=== PATIENT | male | born 1950 | race Hispanic/Latino ===

== ENCOUNTER 2016-10-07 10:48 | Inpatient (IN) | payer MEDICARE, OTHER ==
[2016-10-07] MEDS ORDERED: Nitroglycerin 2% Ointment Foilpak UD TOP STA (11:14)
[2016-10-07] MEDS ORDERED: Famotidine 20mg/50ml 20 MG/50 ML BAG IVPB STA (11:15)
--- NOTE | 2016-10-07 11:21 | ED PDOC ---
Arrival/HPI - General Chief Complaint: Chest Pain Time Seen by Provider: 10/07/16 11:01 Historian: Patient - History of Present Illness Narrative History of Present Illness (Text): 10/07/16 11:12 Lg Forbes is a 66 year old male, with a history of hypertension on lisinopril, presents to the emergency department complaining of left sided chest discomfort since 6 am today morning. Patient describes the quality of discomfort as a burning sensation the the left side of his chest which radiates to the back and left arm. Patient reports that he has not experienced chest pain of this quality before. En route, patient was given aspirin and nitroglycerin by EMS for minimal symptomatic relief. Patient denies any fever, chills, shortness of breath, nausea, vomiting, urinary symptoms, or any other complaints at this time. Time/Duration: Other (since 6am today ) Symptom Onset: Gradual Symptom Course: Improving Severity Level: Mild Activities at Onset: Light Context: Home Past Medical History - Provider Review Nursing Documentation Reviewed: Yes - Infectious Disease Hx of Infectious Diseases: None - Tetanus Immunization Tetanus Immunization: Unknown - Cardiac Hx Cardiac Disorders: Yes Hx Hypertension: Yes - Pulmonary Hx Respiratory Disorders: Yes Hx Bronchitis: Yes - Neurological Hx Neurological Disorder: No - HEENT Hx HEENT Disorder: No - Renal Hx Renal Disorder: No - Endocrine/Metabolic Hx Endocrine Disorders: No - Hematological/Oncological Hx Blood Disorders: No - Integumentary Hx Dermatological Disorder: No - Musculoskeletal/Rheumatological Hx Musculoskeletal Disorders: No - Gastrointestinal Hx Gastrointestinal Disorders: No - Genitourinary/Gynecological Hx Genitourinary Disorders: No - Psychiatric Hx Psychophysiologic Disorder: No Hx Depression: No Hx Emotional Abuse: No Hx Physical Abuse: No Hx Substance Use: No - Suicidal Assessment Feels Threatened In Home Enviroment: No Family/Social History - Physician Review Nursing Documentation Reviewed: Yes Family/Social History: No Known Family HX Smoking Status: Light Smoker < 10 Cigarettes Daily Hx Alcohol Use: No Hx Substance Use: No Hx Substance Use Treatment: No Allergies/Home Meds Allergies/Adverse Reactions: Allergies Penicillins Allergy (Verified 10/07/16 10:57) RASH Home Medications: Home Meds Medication Instructions Recorded Confirmed Albuterol HFA [Ventolin HFA 90 1 puff IH PRN PRN 11/10/15 10/07/16 mcg/actuation (8 g)] Lisinopril [Lisinopril] 10 mg PO DAILY 11/10/15 10/07/16 Montelukast [Singulair] 10 mg PO DAILY 11/10/15 10/07/16 Advair 250-50 Diskus 1 puff INH BID 10/07/16 10/07/16 Review of Systems - Physician Review All systems were reviewed & negative as marked: Yes - Review of Systems Constitutional: Normal. absent: Fatigue, Fevers Respiratory: Cough. absent: SOB, Sputum Cardiovascular: Chest Pain (Burning sensation ) Gastrointestinal: absent: Abdominal Pain, Diarrhea, Nausea, Vomiting Musculoskeletal: Back Pain (chest pain radiating to left back ), Other (chest pain radiating to left arm ) Neurological: Normal Physical Exam Vital Signs Reviewed: Yes Vital Signs Pulse Resp BP Pulse Ox 10/07/16 11:05 79 16 137/83 100 Temperature: Afebrile Blood Pressure: Normal Pulse: Regular Respiratory Rate: Normal Appearance: Positive for: Well-Appearing, Non-Toxic, Comfortable Pain Distress: None Mental Status: Positive for: Alert and Oriented X 3 - Systems Exam Head: Present: Atraumatic, Normocephalic Pupils: Present: PERRL Conjunctiva: Present: Normal Mouth: Present: Moist Mucous Membranes Respiratory/Chest: Present: Clear to Auscultation, Good Air Exchange. No: Respiratory Distress, Accessory Muscle Use Cardiovascular: Present: Regular Rate and Rhythm, Normal S1, S2. No: Murmurs Abdomen: Present: Normal Bowel Sounds. No: Tenderness, Distention, Peritoneal Signs, Rebound, Guarding Back: Present: Normal Inspection. No: Midline Tenderness, Paraspinal Tenderness Upper Extremity: Present: Normal Inspection. No: Cyanosis, Edema Lower Extremity: Present: Normal Inspection. No: Edema Neurological: Present: GCS=15, CN II-XII Intact, Speech Normal, Motor Func Grossly Intact, Normal Sensory Function Skin: Present: Warm, Dry, Normal Color. No: Rashes Psychiatric: Present: Alert, Oriented x 3, Normal Insight, Normal Concentration Medical Decision Making ED Course and Treatment: 10/07/16 11:22 Impression: A 66 year old male who presents to the emergency department complaining of left sided chest discomfort radiating to back and left arm. Differential Diagnosis included but are not limited to: chest pain r/o ACS vs. GERD Plan: -- EKG -- Labs, cardiac enzymes -- Chest X-ray -- Nitroglycerin -- Pepcid -- Urinalysis -- Reassess and disposition Progress Notes: 10/07/16 11:38 EKG interpreted by me: NSR @ 81 bpm. Normal [place]. Normal interval 10/07/16 12:08 Troponin negative. EKG reviewed. CXR normal. Patient with multiple risk factors for ACS. +smoker. will place on observation for Chest Pain r/o ACS - Lab Interpretations Lab Results: 10/07/16 11:28 10/07/16 11:28 Lab Results 10/07/16 11:28: Sodium 132, Potassium 4.6, Chloride 103, Carbon Dioxide 23, Anion Gap 11, BUN 16, Creatinine 1.2, Est GFR ( Amer) > 60, Est GFR (Non- Af Amer) > 60, Random Glucose 83, Calcium 9.2, Magnesium 2.0, Total Bilirubin 0.4, AST 25, ALT 19, Alkaline Phosphatase 86, Lactate Dehydrogenase 347, Total Creatine Kinase 64, Troponin I < 0.01, Total Protein 6.5, Albumin 3.9, Globulin 2.7, Albumin/Globulin Ratio 1.4 10/07/16 11:28: PT 10.4, INR 0.96, APTT 30.6 10/07/16 11:28: WBC 6.3, RBC 3.48 L, Hgb 11.5 L, Hct 34.8 L, MCV 100.0, MCH 33.0 , MCHC 33.0, RDW 13.5, Plt Count 267, MPV 9.4, Gran % 62.9, Lymph % (Auto) 26.2 , Bowman % (Auto) 7.7 H, Eos % (Auto) 2.9, Baso % (Auto) 0.3, Gran # 3.93, Lymph # 1.6, Bowman # 0.5, Eos # 0.2, Baso # 0.02 I have reviewed the lab results: Yes Interpretation: All labs normal - RAD Interpretation Radiology Orders: 10/07/16 11:14 CHEST PORTABLE [RAD] Stat - Medication Orders Current Medication Orders: Discontinued Medications Famotidine (Pepcid 20mg/50ml Premix) 20 mg in 50 mls @ 100 mls/hr IVPB STAT STA Stop: 10/07/16 11:44 Last Admin: 10/07/16 11:30 Dose: 100 mls/hr Nitroglycerin (Nitro-Bid 2% Oint) 1 ea TOP STAT STA Stop: 10/07/16 11:15 Last Admin: 10/07/16 11:32 Dose: 1 ea GERRY Risk Score for UA/NSTEMI - GERRY Risk Score Age > 64: YES 3 or more CAD Risk Factors: YES Known CAD (Stenosis greater than 50%): NO Aspirin use in past 7 days: NO Severe Angina: YES EKG ST changes greater than 0.5mm: NO Positive Cardiac Marker: NO GERRY Score: 3 % risk at 14 days of: all cause mortality, new or recurrent OR, or severe recurrent ischemia requiring urgen revascularization: 13% - Scribe Statement The provider has reviewed the documentation as recorded by the Lurdesibshorty Allred Provider Attestation: Provider Scribe Attestation: All medical record entries made by the Scribe were at my direction and personally dictated by me. I have reviewed the chart and agree that the record accurately reflects my personal performance of the history, physical exam, medical decision making, and the department course for this patient. I have also personally directed, reviewed, and agree with the discharge instructions and disposition. Disposition/Present on Arrival - Present on Arrival Any Indicators Present on Arrival: No History of DVT/PE: No History of Uncontrolled Diabetes: No Urinary Catheter: No History of Decub. Ulcer: No History Surgical Site Infection Following: None - Disposition Have Diagnosis and Disposition been Completed?: Yes Diagnosis: Chest pain Disposition: HOSPITALIZED Disposition Time: 12:09 Condition: FAIR Discharge Instructions (ExitCare): Chest Pain (ED) Referrals: Shubham PADILLA,Anthony Soctt MD [Primary Care Provider] - Follow up with primary Forms: [employer] (Slovak)
[2016-10-07 11:44] LABS: ALB/GLOB RATIO 1.4 (1.1-1.8); ALBUMIN 3.9 g/dL (3.0-4.8); ALT/SGPT 19 U/L (7-56); AST/SGOT 25 U/L (15-59); BASO # 0.02 K/mm3 (0.0-2.0); BASO % 0.3 % (0.0-3.0); BLOOD UREA NITROGEN 16 mg/dL (7-21); CALCIUM 9.2 mg/dL (8.4-10.5); EOS # 0.2 (0.0-0.7); EOS % 2.9 % (1.5-5.0); GFR AFRICAN-AMERICAN > 60; GFR NON-AFRICAN AMERICAN > 60; GRAN # 3.93 (1.4-6.5); GRAN % 62.9 % (50.0-68.0); HEMOGLOBIN 11.5 gm/dL (14.0-18.0); LYMPH # 1.6 (1.2-3.4); LYMPH % 26.2 % (22.0-35.0); MEAN PLATELET VOLUME 9.4 fl (7.0-11.0); MONO # 0.5 (0.1-0.6); MONO % 7.7 % (1.0-6.0); PLATELET COUNT 267 10^3/uL (120.0-450.0); RBC 3.48 10^6/uL (3.5-6.1); RED CELL DISTRIBUTION WIDTH 13.5 % (11.5-14.5); WHITE BLOOD COUNT 6.3 10^3/ul (4.5-11.0)
[2016-10-07 11:52] LABS: INR 0.96 (0.93-1.08); PARTIAL THROMBOPLASTIN TIME 30.6 Seconds (23.7-30.8); PROTHROMBIN TIME 10.4 Seconds (9.9-11.8)
[2016-10-07 12:00] LABS: TROPONIN I < 0.01 ng/mL
--- NOTE | 2016-10-07 12:55 | CARD ---
APPROVED REPORT EKG Measurement Heart [id number] <Conclusion> Normal sinus rhythm Normal ECG
--- NOTE | 2016-10-07 14:24 | RAD ---
HISTORY: chest pain COMPARISON: No prior. FINDINGS: LUNGS: Nonspecific volume loss right chest however there is no infiltrate pleural effusion or pneumothorax identified bilaterally. There is limited rotation of the patient towards the right which may account for some of the appearance of volume loss of the right lung. PLEURA: No significant pleural effusion identified, no pneumothorax apparent. CARDIOVASCULAR: Normal. OSSEOUS STRUCTURES: No significant abnormalities. VISUALIZED UPPER ABDOMEN: Normal. OTHER FINDINGS: None. IMPRESSION: Mild right volume loss of the right lung. No acute infiltrate or pleural effusion identified. No pneumothorax bilaterally.
[2016-10-07 14:32] LABS: URINE BILIRUBIN NEGATIVE (NEGATIVE); URINE BLOOD NEGATIVE (NEGATIVE); URINE GLUCOSE (UA) NEGATIVE (NEGATIVE); URINE LEUKOCYTE ESTERASE NEGATIVE Leu/uL (NEGATIVE); URINE NITRATE NEGATIVE (NEGATIVE); URINE PROTEIN NEGATIVE mg/dL (<30 mg/dL); URINE UROBILINOGEN 0.2 E.U./dL (<1 E.U./dL)
[2016-10-07 14:34] LABS: URINE APPEARANCE CLEAR (CLEAR); URINE COLOR YELLOW (YELLOW)
[2016-10-07 15:32] VITALS: BMI 26.3
[2016-10-07] MEDS ORDERED: Albuterol HFA 90 mcg/actuation (8 g) INH PRN (19:24)
[2016-10-07] MEDS ORDERED: Albuterol 0.083% Inhal Sol (2.5 mg/3 mL) UD IH PRN (19:33)
[2016-10-07] MEDS: Sodium Chloride 0.45% 1,000 ML IV SCH (20:03)
[2016-10-07] MEDS: Arformoterol 15 mcg/2 ml Inh Sol IH SCH (21:17)
[2016-10-07] MEDS: Budesonide 0.5 mg/2 ml Inhal Susp UD IH SCH (21:17)
--- NOTE | 2016-10-07 22:06 | HP ---
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 I was called on to the emergency room to see the patient whom I saw in the emergency room. He is a 66-year-old man who presents with left-sided chest pain since 6 a.m. this morning. It is burning sensation in the left side of the chest. It radiates to the back and the left arm. He has never experienced this before. They gave him nitroglycerin en route, which helped him. PAST MEDICAL HISTORY: He has got a past medical history of hypertension, asthma and bronchitis. FAMILY HISTORY: He has respiratory issues and hypertension in the family. SOCIAL HISTORY: He still smokes cigarettes. No alcohol and no drugs. ALLERGIES: He is allergic to PENICILLIN. MEDICATIONS: He takes albuterol, lisinopril, Singulair and Advair. REVIEW OF SYSTEMS: No acute vision changes or hearing changes. No sore throat. No neck pain. He does have left-sided chest pain and left-sided chest burning into the left arm. No shortness of breath. No cough. No abdominal pain, nausea, vomiting or constipation. Extremities, he can use all 4 of them. Skin is intact. No numbness or tingling. He is alert and oriented. PHYSICAL EXAMINATION GENERAL: He is well-appearing, comfortable in bed. He is uncomfortable with the pain, talking to me nicely. He is retired. He is alert and oriented x3. VITAL SIGNS: He has 79 pulse, 16 respiratory rate, 137/83 blood pressure and 100% O2 sat. HEENT: Head is atraumatic and normocephalic. Extraocular muscles are intact. Pupils are equal and reactive to light and accommodation. Throat is moist. NECK: Supple. Thyroid midline. No palpable or appreciative lymphadenopathy. HEART: Regular rate. Normal S1 and S2. LUNGS: Decreased breath sounds bilaterally with fair inspiration. ABDOMEN: Soft and nontender. Positive bowel sounds. No guarding, no rebound and no CVA tenderness. EXTREMITIES: Have no edema. NEUROLOGIC: GCS is 15. Cranial nerves II through XII grossly intact. Normal speech. He can move all 4 extremities well. He is alert and oriented x3. SKIN: Intact. No rashes or ulcers. Both of his arms have multiple skin changes and colors. LABORATORY DATA: He has had multiple tests in the emergency room. He has a urine which is clean. He has 132 sodium, potassium 4.6, BUN 16 and creatinine 1.2. GFR is greater than 60. Sugar is 83. Calcium 9.2 and magnesium is 2. Total bilirubin is 0.4. AST is 25, ALT is 19, alkaline phosphatase 86, lactate dehydrogenase is 347, total creatine kinase is 64, troponin I is less than 0.01, total protein is 6.5 and albumin is 3.9. INR is 0.96. White count 6.3, hemoglobin 11.5, hematocrit 34.8 and platelets 267. Chest x-ray shows mild right volume loss in the right lung. No acute infiltrate or pleural effusion identified. Also, EKG has normal sinus rhythm. First troponin is negative. IMPRESSION AND PLAN: I will put him on IV fluids, Advair, Protonix IV, Singulair, Toradol for pain, albuterol and Zestril. I will consult with GI and cardiology. Hopefully, the next few troponins will be negative. We can discharge him tomorrow. He is on observation status and he is here for chest pain. Ten Senior DO
[2016-10-08] MEDS ORDERED: Pantoprazole 40mg/100ml IVPB 40 MG/100 ML BAG IVPB SCH (06:00)
[2016-10-08 06:31] LABS: HEMOGLOBIN 11.3 gm/dL (14.0-18.0); MEAN CELL VOLUME 98.5 fL (80.0-105.0); MEAN CORPUSCULAR HGB CONC 33.5 g/dl (31.0-37.0); MEAN PLATELET VOLUME 9.4 fl (7.0-11.0); RBC 3.42 10^6/uL (3.5-6.1); RED CELL DISTRIBUTION WIDTH 13.3 % (11.5-14.5); WHITE BLOOD COUNT 6.1 10^3/ul (4.5-11.0)
[2016-10-08 06:43] LABS: ALB/GLOB RATIO 1.5 (1.1-1.8); ALBUMIN 3.8 g/dL (3.0-4.8); ALT/SGPT 17 U/L (7-56); AST/SGOT 46 U/L (15-59); BLOOD UREA NITROGEN 17 mg/dL (7-21); CALCIUM 9.1 mg/dL (8.4-10.5); GFR AFRICAN-AMERICAN > 60; GFR NON-AFRICAN AMERICAN 55
[2016-10-08] MEDS: Arformoterol 15 mcg/2 ml Inh Sol IH SCH ×2 (07:50→19:38)
[2016-10-08] MEDS: Budesonide 0.5 mg/2 ml Inhal Susp UD IH SCH ×2 (07:50→19:38)
[2016-10-08] MEDS ORDERED: Enoxaparin 80 mg Syringe SC ONE (08:30)
[2016-10-08] MEDS ORDERED: ADVAIR INH SCH (10:00)
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
--- NOTE | 2016-10-08 12:42 | CON ---
DATE: 10/08/2016 HISTORY OF PRESENT ILLNESS: The patient is a 66-year-old male who presents with angina including angina at rest. His symptoms of substernal pressure with some radiation to the left shoulder and back. PAST MEDICAL HISTORY: Notable for a long history of smoking with COPD. In addition, he suffers from hypertension and which he is on lisinopril. FAMILY HISTORY: He has a strong family history for CAD including a brother with stents in the past as well as a cousin with multivessel CAD. SOCIAL HISTORY: The patient is an active smoker. He does not drink alcohol. REVIEW OF SYSTEMS: A 14-point review of systems was reviewed in detail. He suffers from dyspnea as well as exertional angina as well as angina at rest. PHYSICAL EXAMINATION: VITAL SIGNS: Blood pressure is 170/63, the heart rate in the 70s. NECK: Negative JVD. LUNGS: Without rales. HEART: Reveal S1 and S2. EXTREMITIES: Without edema. EKG shows no acute changes. LABORATORY DATA: Hemoglobin is 11.3. Troponins are negative x2. IMPRESSION: 1. Unstable angina. 2. High probability for coronary artery disease. 3. Hypertension. 4. Chronic obstructive pulmonary disease. 5. Dyspnea. 6. Positive family history for coronary artery disease. PLAN: Given these findings, I have discussed with the patient and diagnostic and therapeutic alternatives. The patient is agreeable for cardiac catheterization. We will give him one dose of Lovenox today. We will start on aspirin and Plavix. We will arrange for cardiac catheterization in the morning. Abdirahman Crockett MD
[2016-10-08] MEDS: Sodium Chloride 0.45% 1,000 ML IV SCH (19:53)
--- NOTE | 2016-10-08 21:32 | CP.PCM.PN ---
Subjective - Date & Time of Evaluation Date of Evaluation: 10/08/16 Time of Evaluation: 21:30 - Subjective Subjective: Patient was seen because he was having vomiting. Now feel nauseous. Has no other complaints now. Denies chest pain , sob, sweating. Medical record was reviewed. 66 year old white male was admitted with left sided chest pain, Unstable angina. Has PMH of HTN, bronchitis, asthma, COPD, tobacco dependence. 23:35 Nurse calls [facility] BP 177/79. Asaymptomatic. Rx, hydralazine 10 mg IV x 1. 01:22 Belching Rx, simethicone 80 mg po now. Objective - Vital Signs/Intake and Output Vital Signs (last 24 hours): Temp Pulse Resp BP Pulse Ox 97.2 F L 91 H 18 167/74 H 99 10/08/16 17:29 10/08/16 18:00 10/08/16 17:29 10/08/16 17:29 10/08/16 17:29 Intake and Output: 10/08/16 10/09/16 18:59 06:59 Intake Total 1080 Output Total 300 Balance 780 - Medications Medications: Current Medications Albuterol Sulfate (Albuterol 0.083% Inhal Trini (2.5 Mg/3 Ml) Ud) 2.5 mg IH [id number] PRN PRN Reason: Cough and congestion Arformoterol Tartrate (Brovana) 15 mcg IH [id number] [facility] Last Admin: 10/08/16 19:38 Dose: 15 mcg Aspirin (Ecotrin) 81 mg PO DAILY [facility] Last Admin: 10/08/16 09:01 Dose: 81 mg Budesonide (Pulmicort Respules) 0.5 mg IH [id number] [facility] Last Admin: 10/08/16 19:38 Dose: 0.5 mg Clopidogrel Bisulfate (Plavix) 75 mg PO DAILY [facility] Famotidine (Pepcid) 40 mg PO HS [facility] Sodium Chloride (Sodium Chloride 0.45%) 1,000 mls @ 30 mls/hr IV .Q24H [facility] Last Admin: 10/08/16 19:53 Dose: 30 mls/hr Ketorolac Tromethamine (Toradol) 30 mg IVP Q6 PRN PRN Reason: Pain, moderate (4-7) Last Admin: 10/08/16 16:49 Dose: 30 mg Lisinopril (Zestril) 10 mg PO DAILY [facility] Last Admin: 10/08/16 09:01 Dose: 10 mg Montelukast Sodium (Singulair) 10 mg PO DAILY [facility] Last Admin: 10/08/16 09:01 Dose: 10 mg - Labs Labs: PT 10.4 Seconds (9.9-11.8) 10/07/16 11:28 INR 0.96 (0.93-1.08) 10/07/16 11:28 APTT 30.6 Seconds (23.7-30.8) 10/07/16 11:28 Most Recent Lab Values WBC 6.1 10^3/ul (4.5-11.0) 10/08/16 06:00 RBC 3.42 10^6/uL (3.5-6.1) L 10/08/16 06:00 Hgb 11.3 gm/dL (14.0-18.0) L 10/08/16 06:00 Hct 33.7 % (42.0-52.0) L 10/08/16 06:00 MCV 98.5 fL (80.0-105.0) 10/08/16 06:00 MCH 33.0 pg (25.0-35.0) 10/08/16 06:00 MCHC 33.5 g/dl (31.0-37.0) 10/08/16 06:00 RDW 13.3 % (11.5-14.5) 10/08/16 06:00 Plt Count 248 10^3/uL (120.0-450.0) 10/08/16 06:00 MPV 9.4 fl (7.0-11.0) 10/08/16 06:00 Gran % 62.9 % (50.0-68.0) 10/07/16 11:28 Lymph % (Auto) 26.2 % (22.0-35.0) 10/07/16 11:28 [place] % (Auto) 7.7 % (1.0-6.0) H 10/07/16 11:28 Eos % (Auto) 2.9 % (1.5-5.0) 10/07/16 11:28 Baso % (Auto) 0.3 % (0.0-3.0) 10/07/16 11:28 Gran # 3.93 (1.4-6.5) 10/07/16 11:28 Lymph # 1.6 (1.2-3.4) 10/07/16 11:28 [place] # 0.5 (0.1-0.6) 10/07/16 11:28 Eos # 0.2 (0.0-0.7) 10/07/16 11:28 Baso # 0.02 K/mm3 (0.0-2.0) 10/07/16 11:28 PT 10.4 Seconds (9.9-11.8) 10/07/16 11:28 INR 0.96 (0.93-1.08) 10/07/16 11:28 APTT 30.6 Seconds (23.7-30.8) 10/07/16 11:28 Sodium 130 mmol/L (132-148) L 10/08/16 06:00 Potassium 4.9 mmol/L (3.6-5.0) 10/08/16 06:00 Chloride 100 mmol/L (95-110) 10/08/16 06:00 Carbon Dioxide 22 mmol/L (21-33) 10/08/16 06:00 Anion Gap 13 (10-20) 10/08/16 06:00 BUN 17 mg/dL (7-21) 10/08/16 06:00 Creatinine 1.3 mg/dL (0.5-1.4) 10/08/16 06:00 Est GFR ( Amer) > 60 10/08/16 06:00 Est GFR (Non-Af Amer) 55 10/08/16 06:00 Random Glucose 83 mg/dL (70-110) 10/08/16 06:00 Calcium 9.1 mg/dL (8.4-10.5) 10/08/16 06:00 Magnesium 2.0 mg/dL (1.7-2.2) 10/07/16 11:28 Total Bilirubin 0.4 mg/dL (0.2-1.3) 10/08/16 06:00 AST 46 U/L (15-59) 10/08/16 06:00 ALT 17 U/L (7-56) 10/08/16 06:00 Alkaline Phosphatase 76 U/L (38-133) 10/08/16 06:00 Lactate Dehydrogenase 347 U/L (333-699) 10/07/16 11:28 Total Creatine Kinase 64 U/L (35-230) 10/07/16 11:28 Troponin I < 0.01 ng/mL 10/07/16 20:20 Total Protein 6.3 g/dL (5.8-8.3) 10/08/16 06:00 Albumin 3.8 g/dL (3.0-4.8) 10/08/16 06:00 Globulin 2.5 gm/dL 10/08/16 06:00 Albumin/Globulin Ratio 1.5 (1.1-1.8) 10/08/16 06:00 Urine Color Yellow (YELLOW) 10/07/16 14:21 Urine Appearance Clear (CLEAR) 10/07/16 14:21 Urine pH 6.0 (4.7-8.0) 10/07/16 14:21 Ur Specific [place] <= 1.005 (1.005-1.035) 10/07/16 14:21 Urine Protein Negative mg/dL (<30 mg/dL) 10/07/16 14:21 Urine Glucose (UA) Negative mg/dL (NEGATIVE) 10/07/16 14:21 Urine Ketones Negative mg/dL (NEGATIVE) 10/07/16 14:21 Urine Blood Negative (NEGATIVE) 10/07/16 14:21 Urine Nitrate Negative (NEGATIVE) 10/07/16 14:21 Urine Bilirubin Negative (NEGATIVE) 10/07/16 14:21 Urine Urobilinogen 0.2 E.U./dL (<1 E.U./dL) 10/07/16 14:21 Ur Leukocyte Esterase Negative Norma/uL (NEGATIVE) 10/07/16 14:21 - Constitutional Appears: Well, No Acute Distress - Head Exam Head Exam: NORMOCEPHALIC - ENT Exam ENT Exam: Normal External Ear Exam - Neck Exam Neck Exam: Normal Inspection - Respiratory Exam Respiratory Exam: NORMAL BREATHING PATTERN - Cardiovascular Exam Cardiovascular Exam: absent: JVD - GI/Abdominal Exam GI & Abdominal Exam: absent: Distended - Rectal Exam Rectal Exam: Deferred - Exam Additional comments: Deferred. - Extremities Exam Extremities Exam: Normal Inspection - Back Exam Back Exam: NORMAL INSPECTION - Neurological Exam Neurological Exam: Alert, Oriented x3 - Psychiatric Exam Psychiatric exam: Normal Affect, Normal Mood - Skin Skin Exam: Normal Color Assessment and Plan - Assessment and Plan (Free Text) Assessment: Nausea/vomiting. Dyspepsia. Elevated blood pressure reading. Chest pain/Unstable angina. HTN. Asthma/COPD. Tobacco dependence. Plan: Zofran 4 mg IV stat. Hydralazine 10 mg IV stat. Simethicone 80 mg PO stat. Continue present management.
[2016-10-09] MEDS ORDERED: Simethicone 80 mg Chewtab PO STA (01:30)
--- NOTE | 2016-10-09 02:09 | DS ---
HOSPITAL COURSE: I saw Lg resting comfortably in bed. He is still having some pain on his left side. His blood pressure was little bit high this morning, we gave his blood pressure medication earlier today. Otherwise, he slept fairly well. He is doing a little bit better when he came in. PHYSICAL EXAMINATION: VITAL SIGNS: He has 98.2 temperature; 72 pulse; 117/63 blood pressure, we gave him his blood pressure pill early this morning; respiratory rate 19 and he has 98% O2 saturation on room air. HEENT: Head atraumatic, normocephalic. Throat is moist. NECK: Supple. HEART: Regular rate. LUNGS: Clear to auscultation. Decreased breath sounds. He is a smoker. ABDOMEN: Soft, nontender, positive bowel sounds. EXTREMITIES: No edema. MEDICATIONS: He is currently on albuterol, Brovana, Protonix IV, Pulmicort, Singulair, IV fluids, Toradol and Zestril for his blood pressure. LABORATORY DATA: He has a white count of 6.1, hemoglobin 11.3, hematocrit 32.7 and platelets are 248,000. His INR is 0.96. His last troponin was less than 0.01, amylase is 0.01. His urine is clean, estimates PLAN: He has a consult with Dr. Crockett, the spool cleaner and integrated marketing specialist. Hoping that we can discharge him later today. He was here for chest pain. and troponin were all negative and Cardiology thinks he is okay. We could do an outpatient stress test. May be follow with outpatient upper and lower endoscopies. I do think this chest pain is not that hard at this time and I will put him for discharge if he is okay with GI and Cardiology later this afternoon. Ten Senior DO MTDD
[2016-10-09 06:59] LABS: ALB/GLOB RATIO 1.6 (1.1-1.8); ALBUMIN 3.9 g/dL (3.0-4.8); ALT/SGPT 22 U/L (7-56); AST/SGOT 31 U/L (15-59); BLOOD UREA NITROGEN 15 mg/dL (7-21); CALCIUM 8.8 mg/dL (8.4-10.5); GFR AFRICAN-AMERICAN > 60; GFR NON-AFRICAN AMERICAN > 60
[2016-10-09] MEDS: Arformoterol 15 mcg/2 ml Inh Sol IH SCH ×2 (07:57→19:55)
[2016-10-09] MEDS: Budesonide 0.5 mg/2 ml Inhal Susp UD IH SCH ×2 (07:57→19:55)
[2016-10-09] MEDS ORDERED: Sodium Chloride 0.9% 1,000 ML IV SCH ×2 (08:45→14:45)
--- NOTE | 2016-10-09 08:50 | CP.PCM.PN ---
<Mariluz Jorge - Last Filed: 10/09/16 08:42> Subjective - Date & Time of Evaluation Date of Evaluation: 10/09/16 Time of Evaluation: 08:42 - Subjective Subjective: Gastroenterology Fellow/PGY5 Progress Note Patient notes resolved chest pain and burning. This morning, he notes onset of nausea, recurrent clear vomitus, and headache. No bowel movement yesterday. A 12 -point review of systems negative except for as above. Objective - Vital Signs/Intake and Output Vital Signs (last 24 hours): Temp Pulse Resp BP Pulse Ox 97.8 F 78 20 164/76 H 96 10/09/16 05:40 10/09/16 05:40 10/09/16 05:40 10/09/16 05:40 10/09/16 05:40 Intake and Output: 10/09/16 10/09/16 06:59 18:59 Intake Total 360 Output Total 650 Balance -290 - Medications Medications: Current Medications Albuterol Sulfate (Albuterol 0.083% Inhal Trini (2.5 Mg/3 Ml) Ud) 2.5 mg IH [id number] PRN PRN Reason: Cough and congestion Arformoterol Tartrate (Brovana) 15 mcg IH [id number] [facility] Last Admin: 10/09/16 07:57 Dose: 15 mcg Aspirin (Ecotrin) 81 mg PO DAILY [facility] Last Admin: 10/08/16 09:01 Dose: 81 mg Budesonide (Pulmicort Respules) 0.5 mg IH [id number] [facility] Last Admin: 10/09/16 07:57 Dose: 0.5 mg Clopidogrel Bisulfate (Plavix) 75 mg PO DAILY [facility] Famotidine (Pepcid) 40 mg PO HS [facility] Last Admin: 10/08/16 23:05 Dose: 40 mg Sodium Chloride (Sodium Chloride 0.9%) 1,000 mls @ 60 mls/hr IV .[id number] [facility] Ketorolac Tromethamine (Toradol) 30 mg IVP Q6 PRN PRN Reason: Pain, moderate (4-7) Last Admin: 10/09/16 02:17 Dose: 30 mg Lisinopril (Zestril) 10 mg PO DAILY [facility] Last Admin: 10/08/16 09:01 Dose: 10 mg Montelukast Sodium (Singulair) 10 mg PO DAILY [facility] Last Admin: 10/08/16 09:01 Dose: 10 mg Ondansetron HCl (Zofran Inj) 4 mg IVP Q6H PRN PRN Reason: Nausea/Vomiting - Labs Labs: 10/09/16 05:20 PT 10.4 Seconds (9.9-11.8) 10/07/16 11:28 INR 0.96 (0.93-1.08) 10/07/16 11:28 APTT 30.6 Seconds (23.7-30.8) 10/07/16 11:28 - Constitutional Appears: Non-toxic, No Acute Distress - Head Exam Head Exam: ATRAUMATIC, NORMOCEPHALIC - Eye Exam Eye Exam: EOMI, PERRL Pupil Exam: PERRL. absent: Miosis, Mydriatic - ENT Exam ENT Exam: Mucous Membranes Moist, Normal Oropharynx - Neck Exam Neck Exam: Full ROM, Normal Inspection - Respiratory Exam Respiratory Exam: Clear to Ausculation Bilateral. absent: Rales, Rhonchi, Wheezes - Cardiovascular Exam Cardiovascular Exam: RRR, +S1, +S2. absent: Gallop, Rubs - GI/Abdominal Exam GI & Abdominal Exam: Soft, Normal Bowel Sounds. absent: Distended, Firm, Guarding, Rigid, Tenderness, Organomegaly - Extremities Exam Extremities Exam: Normal Inspection. absent: Pedal Edema - Neurological Exam Neurological Exam: Alert, Awake - Psychiatric Exam Psychiatric exam: Normal Affect, Normal Mood - Skin Skin Exam: Dry, Intact, Normal Color, Warm Assessment and Plan - Assessment and Plan (Free Text) Assessment: 66 year old male with history of Hypertension, Asthma, and Bronchitis presenting with chest to left flank pain and burning. Active treatment of unstable angina and dyspepsia. Prior EGD and colonoscopy at [facility] between 5-10 years ago endorsed to be normal. Plan: >cardiology managing-cardiac catheterization today >ordered zofran for persistent nausea and vomiting >will benefit from EGD evaluation given chronic dyspepsia despite outpatient antiacid therapies and alarm features of advanced age, , male, weight loss, and tobacco abuse >>will follow up cath results and recommendations to determine timing of endoscopic evaluation >will follow clinical course <Ray Horne - Last Filed: 10/09/16 19:27> Objective - Vital Signs/Intake and Output Vital Signs (last 24 hours): Temp Pulse Resp BP Pulse Ox 98.2 F 72 18 145/93 H 97 10/09/16 17:48 10/09/16 18:40 10/09/16 18:40 10/09/16 18:40 10/09/16 13:55 Intake and Output: 10/09/16 10/10/16 18:59 06:59 Intake Total 240 Output Total 650 Balance -410 - Medications Medications: Current Medications Albuterol Sulfate (Albuterol 0.083% Inhal Trini (2.5 Mg/3 Ml) Ud) 2.5 mg IH [id number] PRN PRN Reason: Cough and congestion Arformoterol Tartrate (Brovana) 15 mcg IH [id number] [facility] Last Admin: 10/09/16 07:57 Dose: 15 mcg Aspirin (Ecotrin) 81 mg PO DAILY [facility] Last Admin: 10/09/16 10:16 Dose: 81 mg Atorvastatin Calcium (Lipitor) 40 mg PO DIN [facility] Last Admin: 10/09/16 18:16 Dose: 40 mg Budesonide (Pulmicort Respules) 0.5 mg IH [id number] [facility] Last Admin: 10/09/16 07:57 Dose: 0.5 mg Clopidogrel Bisulfate (Plavix) 75 mg PO DAILY [facility] Last Admin: 10/09/16 10:17 Dose: 75 mg Famotidine (Pepcid) 40 mg PO HS [facility] Last Admin: 10/08/16 23:05 Dose: 40 mg Sodium Chloride (Hypertonic Saline 3%) 500 mls @ 30 mls/hr IV .[id number] [facility] Stop: 10/10/16 18:46 Last Admin: 10/09/16 18:57 Dose: 30 mls/hr Ketorolac Tromethamine (Toradol) 30 mg IVP Q6 PRN PRN Reason: Pain, moderate (4-7) Last Admin: 10/09/16 02:17 Dose: 30 mg Lisinopril (Zestril) 40 mg PO DAILY [facility] Last Admin: 10/09/16 18:17 Dose: 30 mg Montelukast Sodium (Singulair) 10 mg PO DAILY [facility] Last Admin: 10/09/16 10:17 Dose: 10 mg Ondansetron HCl (Zofran Inj) 4 mg IVP Q6H PRN PRN Reason: Nausea/Vomiting Last Admin: 10/09/16 12:08 Dose: 4 mg - Labs Labs: 10/09/16 17:30 PT 10.4 Seconds (9.9-11.8) 10/07/16 11:28 INR 0.96 (0.93-1.08) 10/07/16 11:28 APTT 30.6 Seconds (23.7-30.8) 10/07/16 11:28 Attending/Attestation - Attestation I have personally seen and examined this patient.: Yes I have fully participated in the care of the patient.: Yes I have reviewed all pertinent clinical information, including history, physical exam and plan: Yes Notes (Text): 10/09/16 19:26 66 year old male with h/o HTN, Asthma admitted with chest pain, now s/p cath w/ stent. Also with h/o GERD. 1. GERD Plan: -continue PPI daily -supportive care -no acute indication for endoscopy -may pursue endoscopy outpatient
--- NOTE | 2016-10-09 09:49 | PN ---
SUBJECTIVE: I saw him resting comfortably in bed. We are looking forward to his catheterization this morning with Dr. Crockett. He might need some stents due to his symptoms. PHYSICAL EXAMINATION VITAL SIGNS: He has 97.8 temperature, 78 pulse, 164/76 blood pressure, 20 respiratory rate, and 96% O2 saturation on room air. HEENT: Head is atraumatic and normocephalic. HEART: Regular rate. LUNGS: Clear to auscultation. ABDOMEN: Soft. EXTREMITIES: No edema. MEDICATIONS: He is currently on albuterol, Brovana, Ecotrin, Pepcid, Plavix, Pulmicort, Singulair, IV fluids, Toradol, Zestril, and Zofran. LABORATORY DATA: He has a 6.1 white count, 11.3 hemoglobin, 32.7 hematocrit, and 248 platelets. INR is 0.96. Sodium is 121, quite low potassium is 4.5, BUN is 15, and creatinine is 1.1. GFR is greater than 60. Sugar is 95 and calcium is 8.8. Total bilirubin is 25. AST is 31, ALT is 22, and alkaline phosphatase is 77. Troponin is less than 0.01. Total protein is 6.3. Urine is clear. ASSESSMENT AND PLAN: He is being seen by Gastrointestinal and Cardiology. I am going to change I will check his labs tomorrow as per cardiology with his catheterization. Ten Senior DO MTDD
[2016-10-09] MEDS ORDERED: Lidocaine 2% Inj (20ml) ONE (12:17)
[2016-10-09] MEDS ORDERED: Midazolam 2 MG/2 ML VIAL ONE ×3 (12:32→12:55)
[2016-10-09] MEDS ORDERED: Iohexol 350 MG/100 ML VIAL ONE (12:59)
[2016-10-09] MEDS ORDERED: Iohexol 350mgl/ml 50 ML ONE (12:59)
[2016-10-09] MEDS ORDERED: Morphine 2 mg/ml ISec ONE (13:06)
[2016-10-09] MEDS ORDERED: Phenylephrine 10 mg/ml Inj ONE (13:14)
--- NOTE | 2016-10-09 16:57 | CP.PCM.CON ---
History of Present Illness - History of Present Illness History of Present Illness: Initial Nephrology Consultation: Assessment: critical Acute on chronic Hyponatremia with very dilute urine ? polydipsia HTN (I12.0) active smoker CAD Plan Hypertension control with meds as ordered. Patient on ACEI: will maximise dose for better HTN control. decision for beta-gatito as per cardiology. if no BB then can add CCB as amlodipine 5 mg/day low salt diet. smoking cessation agree with IVF for now, pending Monitor Input/Output, daily weights and renal function with basic metabolic panel Check urine analysis, urine sodium and osmol. repeat BMP today. Monitor Na level closely. If Na level continue to drop then will consider 3% saline . Therapy with vaptans not indicated at this time. Further work up/management as per primary team Thanks for allowing me to participate in care of your patient. Will follow patient with you. Please call if any Qs Dr Emre Mireles Office: [phone] Chief Complaint; right leg pain Reason for consult: Hyponatremia HPI: Pt is a 66 y/o M with hx of hypertension ( atleast 4 years), active smoker presented with complaints of chest pain, seen by cardiology and underwent cardiac cath today. pt was seen for hyponatremia. His serum Na was 130 initially which went down to 120 today. had nausea/vomitting earlier which has resolved Denies chest pain, palpitation, shortness of breath, leg swelling now Denies blood or bubbles in urine Denies OTC/herbal meds or NSAIDs c/o Rt leg pain, due to being in supine position after cath ROS: Constitutional Symptoms: Denies fever. No chills. No Recent Weight Changes Eyes: denies change in vision, denies watery eyes, denies double vision Ears/Nose/Mouth/Throat: Denies Abnormal Taste. No Bad breath no Bad Taste. Cardiovascular: No chest pain now. There is no shortness of breath. No palpitations. Pulmonary: No shortness of breath no cough. Gastrointestinal: denies abdominal pain No nausea. No vomiting. Denies change in bowel habits. Denies Bleeding Genitourinary: No Change in force of strain when urinating. No increase in urinary frequency. No pain while urinating. Denies blood in urine. Neurological: Denies headaches. No dizziness. Denies loss of balance. Denies weakness, denies tingling/numbness Dermatological: No Rash or Bruising or ulcers. Psychiatric: Denies Anxiety. No depression. Denies hallucinations. Rheumatological: No joint pain. Denies Joint swelling. c/o Rt leg pain Endocrine: Denies tiredness/Fatigue denies Heat/Cold Intolerance. All other negative Physical Examination: General Appearance: Comfortable, in no acute respiratory distress, co-operative . Vitals reviewed and noted as below Head; Atraumatic, normocephalic ENT: no ulcers no thrush. Tongue is midline. Oropharynx: no rash or ulcers. EYES: Pupils are equal, round and reactive to light accommodation. Eye muscles and extraocular movement intact. Sclera is anicteric. Neck; supple no lymphadenopathy, no thyromegaly or bruit Lungs: Normal respiratory rate/effort. Breath sounds bilateral equal and clear Heart: Normal rate. s1s2 normal. No rub or gallop. Extremities: no edema. No varicose veins Neurological: Patient is alert, awake and oriented to person, place and time. No focal deficit. Strength bilateral appropriate and equal Skin: Warm and dry. Normal turgor. No rash. Palpitation: Normal elasticity for age Abdomen: Abdomen is soft. Bowel sounds +. There is no abdominal tenderness, no guarding/rigidity no organomegaly Psych: normal insight and normal affect/mood MSK: no joint tenderness or swelling. Digits and nails normal, no deformity : kidney or bladder not palpable Labs/imaging/EKG reviewed. Past medical history, past surgical history, family history, social history, allergy reviewed and noted as below Family hx: no hx of CKD. Rest non-contributory Work up: UA SG <1.005 cxr no effusion or lung mass Past Patient History - Infectious Disease Hx of Infectious Diseases: None - Tetanus Immunizations Tetanus Immunization: Unknown - Past Social History Smoking Status: Light Smoker < 10 Cigarettes Daily - CARDIAC Hx Cardiac Disorders: Yes Hx Hypertension: Yes - PULMONARY Hx Respiratory Disorders: Yes Hx Bronchitis: Yes - NEUROLOGICAL Hx Neurological Disorder: No - HEENT Hx HEENT Problems: No - RENAL Hx Chronic Kidney Disease: No - ENDOCRINE/METABOLIC Hx Endocrine Disorders: No - HEMATOLOGICAL/ONCOLOGICAL Hx Blood Transfusions: No - INTEGUMENTARY Hx Dermatological Problems: No - MUSCULOSKELETAL/RHEUMATOLOGICAL Hx Falls: No - GASTROINTESTINAL Hx Gastrointestinal Disorders: No - GENITOURINARY/GYNECOLOGICAL Hx Genitourinary Disorders: No - PSYCHIATRIC Hx Psychophysiologic Disorder: No Hx Depression: No Hx Emotional Abuse: No Hx Physical Abuse: No - SURGICAL HISTORY Hx Surgeries: No Meds Allergies/Adverse Reactions: Allergies Allergy/AdvReac Type Severity Reaction Status Date / Time Penicillins Allergy RASH Verified 10/07/16 10:57 - Medications Medications: Current Medications Albuterol Sulfate (Albuterol 0.083% Inhal Trini (2.5 Mg/3 Ml) Ud) 2.5 mg IH [id number] PRN PRN Reason: Cough and congestion Arformoterol Tartrate (Brovana) 15 mcg IH [id number] [facility] Last Admin: 10/09/16 07:57 Dose: 15 mcg Aspirin (Ecotrin) 81 mg PO DAILY [facility] Last Admin: 10/09/16 10:16 Dose: 81 mg Atorvastatin Calcium (Lipitor) 40 mg PO DIN [facility] Budesonide (Pulmicort Respules) 0.5 mg IH [id number] [facility] Last Admin: 10/09/16 07:57 Dose: 0.5 mg Clopidogrel Bisulfate (Plavix) 75 mg PO DAILY [facility] Last Admin: 10/09/16 10:17 Dose: 75 mg Famotidine (Pepcid) 40 mg PO HS [facility] Last Admin: 10/08/16 23:05 Dose: 40 mg Sodium Chloride (Sodium Chloride 0.9%) 1,000 mls @ 100 mls/hr IV .Q10H [facility] Last Admin: 10/09/16 14:44 Dose: 100 mls/hr Ketorolac Tromethamine (Toradol) 30 mg IVP Q6 PRN PRN Reason: Pain, moderate (4-7) Last Admin: 10/09/16 02:17 Dose: 30 mg Lisinopril (Zestril) 40 mg PO DAILY [facility] Montelukast Sodium (Singulair) 10 mg PO DAILY [facility] Last Admin: 10/09/16 10:17 Dose: 10 mg Ondansetron HCl (Zofran Inj) 4 mg IVP Q6H PRN PRN Reason: Nausea/Vomiting Last Admin: 10/09/16 12:08 Dose: 4 mg Results - Vital Signs Recent Vital Signs: Last Vital Signs Temp 97.8 F 10/09/16 05:40 Pulse 82 10/09/16 16:40 Resp 18 10/09/16 16:40 BP 153/87 H 10/09/16 16:40 Pulse Ox 97 10/09/16 13:55 - Labs Result Diagrams: 10/08/16 06:00 10/09/16 10:00 Labs: Laboratory Results - last 24 hr 10/09/16 10/09/16 05:20 10:00 Sodium 121 L 120 L Potassium 4.5 Chloride 92 L Carbon Dioxide 21 Anion Gap 13 BUN 15 Creatinine 1.1 Est GFR ( Amer) > 60 Est GFR (Non-Af Amer) > 60 Random Glucose 95 Calcium 8.8 Total Bilirubin 0.5 AST 31 ALT 22 Alkaline Phosphatase 77 Total Protein 6.3 Albumin 3.9 Globulin 2.4 Albumin/Globulin Ratio 1.6
[2016-10-09 18:14] LABS: BLOOD UREA NITROGEN 12 mg/dL (7-21); CALCIUM 8.5 mg/dL (8.4-10.5); GFR AFRICAN-AMERICAN > 60; GFR NON-AFRICAN AMERICAN > 60; HDL CHOLESTEROL 51 mg/dL (29-60); URIC ACID 4.9 mg/dL (3.5-8.5)
[2016-10-09 18:24] LABS: LDL CHOLESTEROL 128 mg/dL (0-129)
[2016-10-09] MEDS: Sodium Chloride 3% 500 ML IV SCH (18:57)
[2016-10-09 19:27] LABS: URINE BILIRUBIN NEGATIVE (NEGATIVE); URINE BLOOD TRACE-INTACT (NEGATIVE); URINE GLUCOSE (UA) NEGATIVE (NEGATIVE); URINE LEUKOCYTE ESTERASE NEGATIVE Leu/uL (NEGATIVE); URINE NITRATE NEGATIVE (NEGATIVE); URINE PROTEIN NEGATIVE mg/dL (<30 mg/dL); URINE UROBILINOGEN 0.2 E.U./dL (<1 E.U./dL)
[2016-10-09 19:29] LABS: URINE APPEARANCE CLEAR (CLEAR); URINE COLOR YELLOW (YELLOW)
[2016-10-09 19:47] LABS: URINE EPITHELIAL CELLS 0 - 2 /hpf (0-5); URINE RBC 0 - 2 /hpf (0-2)
[2016-10-09 19:50] LABS: OSMOLALITY,URINE 413 mosm/kg (50-645)
--- NOTE | 2016-10-09 20:25 | CARDCATH ---
PROCEDURE DATE: 10/09/2016 CARDIAC CATHETERIZATION AND PERCUTANEOUS TRANSLUMINAL CORONARY ANGIOPLASTY HISTORY: The patient is a 66-year-old male with multiple cardiac risk factors including heavy smoking, who presents with substernal chest pain including angina at rest. Because of this, cardiac catheterization was recommended. PROCEDURE: Left heart catheterization with coronary aortography and left ventriculogram followed by PTCA and stent of an ostial LAD. The right femoral artery was cannulated with 6-English sheath. There were no complications. The findings on catheterization revealed a left ventricle that contracted normally. Estimated ejection fraction 60%. The patient has a right dominant circulation. The RCA revealed diffuse atherosclerosis with 80% stenosis in the midportion. The circumflex artery which was a small vessel had its takeoff from the ostium of the RCA and revealed diffuse atherosclerosis. The LAD which was the only vessel from the left coronary cusp revealed a 90% stenosis at its ostium with diffuse atherosclerosis throughout the entire tree. There was multiple 50% and 60% lesions in the mid and distal RCA. The patient was started on intravenous Angiomax. Under fluoroscopic guide, the guiding catheter was placed at the ostial LAD. An 0.014 ATW wire was used to cross the lesion. A 3.0 balloon was utilized to predilate the lesion. A 3.5 x 8 mm drug-eluting stent was placed and deployed at 15 atmospheres of pressure. Postdilatation was performed with a 4.0 noncompliant balloon. Repeat coronary aortography revealed an excellent result with resolution of the critical stenoses with no residual stenoses of the ostium LAD and GERRY III flow. Because of the patient's hip pain, the patient could not lie for any length of time, and the rest of the lesions would be left for staged procedure. Angio-Seal was used to close the femoral artery site. The patient tolerated the procedure well. SUMMARY: The procedure was successful PTCA and stent of a 90% ostial LAD stenoses. Cardiac catheterization reveals two-vessel CAD with critical lesion in the mid RCA as well as borderline critical lesions to the mid and distal LAD. 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 Given these findings, the patient will need to remain on aspirin indefinitely and Plavix for least a year and undergo a strict cardiac risk reduction program. We will bring him back in approximately a week to do angioplasty of the mid RCA. Abdirahman Crockett MD
[2016-10-10 04:24] LABS: BASO # 0.01 K/mm3 (0.0-2.0); BASO % 0.2 % (0.0-3.0); EOS # 0.1 (0.0-0.7); EOS % 1.2 % (1.5-5.0); GRAN # 4.33 (1.4-6.5); HEMOGLOBIN 11.6 gm/dL (14.0-18.0); LYMPH # 1.2 (1.2-3.4); LYMPH % 17.6 % (22.0-35.0); MEAN CELL VOLUME 94.9 fL (80.0-105.0); MEAN CORPUSCULAR HGB CONC 34.8 g/dl (31.0-37.0); MEAN PLATELET VOLUME 9.3 fl (7.0-11.0); PLATELET COUNT 275 10^3/uL (120.0-450.0); RBC 3.51 10^6/uL (3.5-6.1); RED CELL DISTRIBUTION WIDTH 12.9 % (11.5-14.5); WHITE BLOOD COUNT 6.6 10^3/ul (4.5-11.0)
[2016-10-10 05:29] LABS: ALB/GLOB RATIO 1.5 (1.1-1.8); ALBUMIN 4.1 g/dL (3.0-4.8); ALT/SGPT 22 U/L (7-56); AST/SGOT 41 U/L (15-59); BLOOD UREA NITROGEN 12 mg/dL (7-21); CALCIUM 9.3 mg/dL (8.4-10.5); GFR AFRICAN-AMERICAN > 60; GFR NON-AFRICAN AMERICAN > 60
--- NOTE | 2016-10-10 06:07 | CP.PCM.PN ---
Subjective - Date & Time of Evaluation Date of Evaluation: 10/10/16 Time of Evaluation: 06:06 - Subjective Subjective: Nurse calls and tells that BP is 175/89. Patient is asymptomatic. Repeat BP was 183/86, HR 82/ min. Patient was seen by bedside. Has no complaints now. Denies head ache, dizziness, heaviness in head, lightheadedness, chest pain, sob, paraesthesia, weakness. Medical record was reviewed. This 66 year old white male was admitted left sided chest pain , burning in nature. Has PMH of HTN, Asthma , Bronchitis, smoker,dyspepsia, unstable angina. Objective - Vital Signs/Intake and Output Vital Signs (last 24 hours): Temp Pulse Resp BP Pulse Ox 99.3 F 75 19 183/86 H 96 10/10/16 05:44 10/10/16 05:44 10/10/16 05:44 10/10/16 05:58 10/10/16 05:44 Intake and Output: 10/09/16 10/10/16 18:59 06:59 Intake Total 240 390 Output Total 650 Balance -410 390 - Medications Medications: Current Medications Albuterol Sulfate (Albuterol 0.083% Inhal Trini (2.5 Mg/3 Ml) Ud) 2.5 mg IH [id number] PRN PRN Reason: Cough and congestion Arformoterol Tartrate (Brovana) 15 mcg IH [id number] [facility] Last Admin: 10/09/16 19:55 Dose: 15 mcg Aspirin (Ecotrin) 81 mg PO DAILY [facility] Last Admin: 10/09/16 10:16 Dose: 81 mg Atorvastatin Calcium (Lipitor) 40 mg PO DIN [facility] Last Admin: 10/09/16 18:16 Dose: 40 mg Budesonide (Pulmicort Respules) 0.5 mg IH [id number] [facility] Last Admin: 10/09/16 19:55 Dose: 0.5 mg Clopidogrel Bisulfate (Plavix) 75 mg PO DAILY [facility] Last Admin: 10/09/16 10:17 Dose: 75 mg Famotidine (Pepcid) 40 mg PO HS [facility] Last Admin: 10/09/16 21:40 Dose: 40 mg Sodium Chloride (Hypertonic Saline 3%) 500 mls @ 30 mls/hr IV .[id number] [facility] Stop: 10/10/16 18:46 Last Admin: 10/09/16 18:57 Dose: 30 mls/hr Ketorolac Tromethamine (Toradol) 30 mg IVP Q6 PRN PRN Reason: Pain, moderate (4-7) Last Admin: 10/10/16 01:39 Dose: 30 mg Lisinopril (Zestril) 40 mg PO DAILY [facility] Last Admin: 10/09/16 18:17 Dose: 30 mg Montelukast Sodium (Singulair) 10 mg PO DAILY [facility] Last Admin: 10/09/16 10:17 Dose: 10 mg Ondansetron HCl (Zofran Inj) 4 mg IVP Q6H PRN PRN Reason: Nausea/Vomiting Last Admin: 10/09/16 12:08 Dose: 4 mg - Labs Labs: 10/10/16 04:21 10/10/16 04:21 PT 10.4 Seconds (9.9-11.8) 10/07/16 11:28 INR 0.96 (0.93-1.08) 10/07/16 11:28 APTT 30.6 Seconds (23.7-30.8) 10/07/16 11:28 - Constitutional Appears: Well, No Acute Distress - Head Exam Head Exam: ATRAUMATIC, NORMAL INSPECTION, NORMOCEPHALIC - Eye Exam Eye Exam: Normal appearance - ENT Exam ENT Exam: Normal External Ear Exam - Neck Exam Neck Exam: Normal Inspection - Respiratory Exam Respiratory Exam: NORMAL BREATHING PATTERN - Cardiovascular Exam Cardiovascular Exam: absent: JVD - GI/Abdominal Exam GI & Abdominal Exam: absent: Distended - Rectal Exam Rectal Exam: Deferred - Exam Additional comments: Deferred. - Extremities Exam Extremities Exam: Normal Inspection - Back Exam Back Exam: NORMAL INSPECTION - Neurological Exam Neurological Exam: Alert, Oriented x3 - Psychiatric Exam Psychiatric exam: Normal Affect, Normal Mood - Skin Skin Exam: Normal Color Assessment and Plan - Assessment and Plan (Free Text) Assessment: Elevated blood pressure reading. HTN. Asthma. Bronchitis. Smoker. Plan: Clonidine 0.1 mg po stat. Continue present management.
[2016-10-10] MEDS: Arformoterol 15 mcg/2 ml Inh Sol IH SCH ×2 (07:50→19:55)
[2016-10-10] MEDS: Budesonide 0.5 mg/2 ml Inhal Susp UD IH SCH ×2 (07:50→19:55)
--- NOTE | 2016-10-10 07:59 | CARD ---
APPROVED REPORT EKG Measurement Heart [id number] <Conclusion> Normal sinus rhythm Increased R/S ratio in V1, consider early transition or posterior infarct
--- NOTE | 2016-10-10 08:47 | PN ---
CARDIOLOGY FOLLOWUP DATE OF FOLLOWUP: 10/10/2016 SUBJECTIVE: The patient is asymptomatic. No chest pain. No shortness of breath. PHYSICAL EXAMINATION: VITAL SIGNS: Blood pressure is 175/90 and heart rate is in the 70s. NECK: Negative JVD. LUNGS: Without rales. HEART: Reveal S1 and S2. EXTREMITIES: Without edema. LABORATORY DATA: The sodium was 118 yesterday, after aggressive IV hydration it is back up to 125. IMPRESSION: 1. Stable post percutaneous transluminal coronary angioplasty and stent. 2. Multivessel coronary artery disease. 3. Diabetes mellitus. 4. Chronic obstructive pulmonary disease. 5. Peripheral vascular disease. 6. Hyponatremia. PLAN: Given these findings, the patient is doing well. We will add clonidine to his regimen for his blood pressure. From a cardiac perspective, the patient can be discharged today. We will bring him back next week for PTCA of an RCA. Abdirahman Crockett MD
[2016-10-10] MEDS: Sodium Chloride 3% 500 ML IV SCH (11:41)
[2016-10-10 12:08] VITALS: RESP 20
--- NOTE | 2016-10-10 12:43 | PN ---
DATE: SUBJECTIVE: The patient is resting comfortable this morning. He is sleeping well. He is hungry this morning little, bit out of it yesterday. Sodium had dropped to 118 and he was quite confused. We changed him to 3% normal saline. His blood pressure is also little bit up. He is now on clonidine. He is being seen by Cardiology and Renal. He does have an appetite this morning and he is little more oriented and he understands what is going on. PHYSICAL EXAMINATION: GENERAL: He is alert and he is comfortable right now in no apparent distress. No chest pain or shortness of breath. No abdominal pain. He is also status post catheterization with stent placement. VITAL SIGNS: Temperature 99.3, pulse 82, blood pressure 183/86, respiratory rate 19, and O2 saturation 96% on room air. HEENT: Throat is moist. Head is atraumatic and normocephalic. NECK: Supple. HEART: Regular rate. LUNGS: Decreased breath sounds. ABDOMEN: Soft. EXTREMITIES: No edema. He is little bit weak. LABORATORY DATA: He has a white count of 6.6, hemoglobin 11.6, hematocrit 33.3, and platelets of 275. INR 0.96. Sodium was 118 yesterday, he was confused, it was 120 before that, it is now to 125, his BUN is 12 and creatinine 1.2. GFR is greater than 60. Sugar is 81. Serum osmolality was 254, calcium 9.3, total bilirubin 0.8, AST is 41, ALT 22, alkaline phosphatase is 84, total protein 6.9, and TSH is 9.57. MEDICATIONS: He is currently on albuterol, Brovana, Catapres, Ecotrin, 3% normal saline, Lipitor, Norvasc, famotidine, Plavix, Pulmicort, Singulair, Toradol, Zestril, and Zofran. ASSESSMENT AND PLAN: He is not on any Synthroid. I will start him on Synthroid today. Continue his medications. Check his laboratories. Ordered physical therapy, out of bed to chair. Awaiting to see what Renal has to say. if it is okay from Renal, I will discharge him. Cardiology is happy with him. I will bring him back next Saturday I believe for another catheterization and stent, but he is also hypothyroid. Ten Senior DO KOKO
--- NOTE | 2016-10-10 14:31 | CP.PCM.PN ---
Subjective - Date & Time of Evaluation Date of Evaluation: 10/10/16 Time of Evaluation: 14:24 - Subjective Subjective: Follow up Nephrology Consultation: Assessment: stable Acute on chronic hypo-osmolar Hyponatremia with elevated urine Na/osmol favors excess ADH HTN (I12.0) active smoker CAD s/p stent elevated TSH Plan his urine results obtained while pt on normal saline infusion hence difficulty to interpret. Hence will need to repeat as outpt once pt stable Hypertension control with meds as ordered. Patient on maximal ACEI also added amlodipine 5 mg/day low salt diet. smoking cessation continue with IVF as 3% saline @ 30 ml/hr for now, d/c it once Na level close to 130 then oral fluid restriction to 1000 mL/day. Monitor serum Na d/c plan from renal perspective once serum Na close to 130 and stays stable, hopefully by tomorrow Further work up/management for elevated TSH as per primary team Thanks for allowing me to participate in care of your patient. Will follow patient with you. Please call if any Qs Dr Emre Mireles Office: [phone] Chief Complaint; none Reason for consult: Hyponatremia HPI: Pt is a 66 y/o M with hx of hypertension ( atleast 4 years), active smoker presented with complaints of chest pain, seen by cardiology and underwent cardiac cath today. pt was seen for hyponatremia. His serum Na was 130 initially which went down to 120 Subjective: Denies chest pain, palpitation, shortness of breath, leg swelling now ROS: Constitutional Symptoms: Denies fever. No chills. No Recent Weight Changes Cardiovascular: No chest pain now. There is no shortness of breath. No palpitations. Pulmonary: No shortness of breath no cough. Gastrointestinal: denies abdominal pain No nausea. No vomiting. Denies change in bowel habits. Denies Bleeding Genitourinary: No Change in force of strain when urinating. No increase in urinary frequency. No pain while urinating. Denies blood in urine. Neurological: Denies headaches. No dizziness. Denies loss of balance. Denies weakness, denies tingling/numbness Physical Examination: General Appearance: Comfortable, in no acute respiratory distress, co-operative . Vitals reviewed and noted as below Lungs: Normal respiratory rate/effort. Breath sounds bilateral equal and clear Heart: Normal rate. s1s2 normal. No rub or gallop. Extremities: no edema. No varicose veins Neurological: Patient is alert, awake and oriented to person, place and time. No focal deficit. Strength bilateral appropriate and equal Skin: Warm and dry. Normal turgor. No rash. Palpitation: Normal elasticity for age Abdomen: Abdomen is soft. Bowel sounds +. There is no abdominal tenderness, no guarding/rigidity no organomegaly Psych: normal insight and normal affect/mood MSK: no joint tenderness or swelling. Digits and nails normal, no deformity : kidney or bladder not palpable Labs/imaging/EKG reviewed. Past medical history, past surgical history, family history, social history, allergy reviewed and noted as below Family hx: no hx of CKD. Rest non-contributory Work up: UA SG <1.005 cxr no effusion or lung mass Objective - Vital Signs/Intake and Output Vital Signs (last 24 hours): Temp Pulse Resp BP Pulse Ox 98.6 F 65 20 156/80 H 100 10/10/16 12:00 10/10/16 12:00 10/10/16 12:00 10/10/16 12:00 10/10/16 08:00 Intake and Output: 10/10/16 10/10/16 06:59 18:59 Intake Total 470 Output Total 1550 Balance -1080 - Medications Medications: Current Medications Albuterol Sulfate (Albuterol 0.083% Inhal Trini (2.5 Mg/3 Ml) Ud) 2.5 mg IH [id number] PRN PRN Reason: Cough and congestion Amlodipine Besylate (Norvasc) 5 mg PO DAILY [facility] Last Admin: 10/10/16 08:08 Dose: 5 mg Arformoterol Tartrate (Brovana) 15 mcg IH [id number] [facility] Last Admin: 10/10/16 07:50 Dose: 15 mcg Aspirin (Ecotrin) 81 mg PO DAILY [facility] Last Admin: 10/10/16 10:12 Dose: 81 mg Atorvastatin Calcium (Lipitor) 40 mg PO DIN [facility] Last Admin: 10/09/16 18:16 Dose: 40 mg Budesonide (Pulmicort Respules) 0.5 mg IH [id number] [facility] Last Admin: 10/10/16 07:50 Dose: 0.5 mg Clonidine HCl (Catapres) 0.1 mg PO BID [facility] Last Admin: 10/10/16 10:12 Dose: 0.1 mg Clopidogrel Bisulfate (Plavix) 75 mg PO DAILY [facility] Last Admin: 10/10/16 10:11 Dose: 75 mg Famotidine (Pepcid) 40 mg PO HS [facility] Last Admin: 10/09/16 21:40 Dose: 40 mg Sodium Chloride (Hypertonic Saline 3%) 500 mls @ 30 mls/hr IV .[id number] [facility] Stop: 10/10/16 18:46 Last Admin: 10/10/16 11:41 Dose: 30 mls/hr Ketorolac Tromethamine (Toradol) 30 mg IVP Q6 PRN PRN Reason: Pain, moderate (4-7) Last Admin: 10/10/16 01:39 Dose: 30 mg Levothyroxine Sodium (Synthroid) 25 mcg PO 0600 [facility] Lisinopril (Zestril) 40 mg PO DAILY [facility] Last Admin: 10/10/16 10:12 Dose: 40 mg Montelukast Sodium (Singulair) 10 mg PO DAILY [facility] Last Admin: 10/10/16 10:12 Dose: 10 mg Ondansetron HCl (Zofran Inj) 4 mg IVP Q6H PRN PRN Reason: Nausea/Vomiting Last Admin: 10/09/16 12:08 Dose: 4 mg - Labs Labs: 10/10/16 04:21 10/10/16 12:27 PT 10.4 Seconds (9.9-11.8) 10/07/16 11:28 INR 0.96 (0.93-1.08) 10/07/16 11:28 APTT 30.6 Seconds (23.7-30.8) 10/07/16 11:28
[2016-10-11 05:48] LABS: HEMOGLOBIN 10.2 gm/dL (14.0-18.0); MEAN CELL VOLUME 95.8 fL (80.0-105.0); MEAN CORPUSCULAR HEMOGLOBIN 32.8 pg (25.0-35.0); MEAN CORPUSCULAR HGB CONC 34.2 g/dl (31.0-37.0); MEAN PLATELET VOLUME 9.2 fl (7.0-11.0); RBC 3.11 10^6/uL (3.5-6.1); RED CELL DISTRIBUTION WIDTH 13.1 % (11.5-14.5)
[2016-10-11 05:52] LABS: ALB/GLOB RATIO 1.4 (1.1-1.8); ALBUMIN 3.4 g/dL (3.0-4.8); ALT/SGPT 29 U/L (7-56); AST/SGOT 41 U/L (15-59); BLOOD UREA NITROGEN 12 mg/dL (7-21); CALCIUM 8.7 mg/dL (8.4-10.5); GFR AFRICAN-AMERICAN > 60; GFR NON-AFRICAN AMERICAN > 60
[2016-10-11] MEDS ORDERED: Levothyroxine 25 MCG TAB PO SCH (06:00)
[2016-10-11 06:04] VITALS: TEMP 98.8; O2SAT 98
[2016-10-11] MEDS: Arformoterol 15 mcg/2 ml Inh Sol IH SCH (07:48)
[2016-10-11] MEDS: Budesonide 0.5 mg/2 ml Inhal Susp UD IH SCH (07:49)
--- NOTE | 2016-10-11 09:43 | DS ---
HISTORY OF PRESENT ILLNESS: He is doing much better this morning. His sodium is at 127. He is in good spirits. He is status post cath with stent placement. He is going to come back on Saturday for another cath and stent. He is being seen by Cardiology and Renal. He will go home on albuterol, Brovana, Catapres, Ecotrin, Lipitor, Norvasc, Pepcid, Plavix, Pulmicort, Singulair, Synthroid and Zestril. PHYSICAL EXAMINATION: VITAL SIGNS: Are 98.8 temperature, 76 pulse, 145/90 and 135/85 blood pressure, 20 respiratory rate, 98% O2 saturation on room air. GENERAL: He is alert. He is comfortable appearing in bed. He slept well. No chest pain, shortness of breath or abdominal pain. He is walking around okay and he has moved his bowels. HEENT: Head is atraumatic, normocephalic. Throat moist. NECK: Supple. HEART: Regular rate. LUNGS: Decreased breath sounds, but clear. ABDOMEN: Soft, nontender. Positive bowel sounds. EXTREMITIES: No edema. LABORATORY DATA: He had a 127 sodium, it has been 125, 126 with 127 this morning. He has a BUN of 12, creatinine 1.1, GFR is greater than 60, sugar is 77, calcium is 8.7. Total bilirubin is 0.5, AST is 41, ALT is 29, alkaline phosphatase is 69, total protein is 5.9. White count is 5, hemoglobin is 10.2, hematocrit is 29.8 and platelets are 255. ASSESSMENT AND PLAN: He is being seen by Cardiology and Renal. If it is okay with them, I will discharge him today with those medications. Also, he will be coming back on Saturday for another cath and stent with Dr. Crockett. He is here for abdominal pain, asthma, hypertension, he is a smoker, low sodium, coronary artery disease, unstable angina, hypothyroidism, and he knows he is out for followup. Ten Senior DO KOKO
--- NOTE | 2016-10-11 10:35 | CP.PCM.PN ---
Subjective - Date & Time of Evaluation Date of Evaluation: 10/11/16 Time of Evaluation: 10:32 - Subjective Subjective: Follow up Nephrology Consultation: Assessment: stable Acute on chronic hypo-osmolar Hyponatremia with elevated urine Na/osmol favors excess ADH HTN (I12.0) active smoker CAD s/p stent elevated TSH: hypothyroidism Plan his urine results obtained while pt on normal saline infusion hence difficulty to interpret. Hence will need to repeat as outpt once pt stable Hypertension control with meds as ordered. Patient on maximal ACEI also added amlodipine 5 mg/day low salt diet. smoking cessation d/c 3% saline oral fluid restriction to 1000 mL/day. stable from renal perspective for d/c and for outpt follow up. But he will be back here on saturday for further PCI then should re-assess his BMP and urine Na, Osmol, UA pt started on synthroid Thanks for allowing me to participate in care of your patient. Please call if any Qs. d/w primary team Dr Emre Mireles Office: [phone] Chief Complaint; none Reason for consult: Hyponatremia HPI: Pt is a 66 y/o M with hx of hypertension ( atleast 4 years), active smoker presented with complaints of chest pain, seen by cardiology and underwent cardiac cath today. pt was seen for hyponatremia. His serum Na was 130 initially which went down to 118 Subjective: Denies chest pain, palpitation, shortness of breath, leg swelling now ROS: Constitutional Symptoms: Denies fever. No chills. No Recent Weight Changes Cardiovascular: No chest pain now. There is no shortness of breath. No palpitations. Pulmonary: No shortness of breath no cough. Gastrointestinal: denies abdominal pain No nausea. No vomiting. Denies change in bowel habits. Denies Bleeding Genitourinary: No Change in force of strain when urinating. No increase in urinary frequency. No pain while urinating. Denies blood in urine. Neurological: Denies headaches. No dizziness. Denies loss of balance. Denies weakness, denies tingling/numbness Physical Examination: General Appearance: Comfortable, in no acute respiratory distress, co-operative . Vitals reviewed and noted as below Lungs: Normal respiratory rate/effort. Breath sounds bilateral equal and clear Heart: Normal rate. s1s2 normal. No rub or gallop. Extremities: no edema. No varicose veins Neurological: Patient is alert, awake and oriented to person, place and time. No focal deficit. Strength bilateral appropriate and equal Skin: Warm and dry. Normal turgor. No rash. Palpitation: Normal elasticity for age Abdomen: Abdomen is soft. Bowel sounds +. There is no abdominal tenderness, no guarding/rigidity no organomegaly Psych: normal insight and normal affect/mood MSK: no joint tenderness or swelling. Digits and nails normal, no deformity : kidney or bladder not palpable Labs/imaging/EKG reviewed. Past medical history, past surgical history, family history, social history, allergy reviewed and noted as below Family hx: no hx of CKD. Rest non-contributory Work up: UA SG <1.005 cxr no effusion or lung mass Objective - Vital Signs/Intake and Output Vital Signs (last 24 hours): Temp Pulse Resp BP Pulse Ox 98.8 F 80 20 145/90 98 10/11/16 06:00 10/11/16 06:00 10/11/16 06:00 10/11/16 06:00 10/11/16 06:00 Intake and Output: 10/11/16 10/11/16 06:59 18:59 Intake Total 300 Output Total 800 Balance -500 - Medications Medications: Current Medications Albuterol Sulfate (Albuterol 0.083% Inhal Trini (2.5 Mg/3 Ml) Ud) 2.5 mg IH [id number] PRN PRN Reason: Cough and congestion Amlodipine Besylate (Norvasc) 5 mg PO DAILY [facility] Last Admin: 10/10/16 08:08 Dose: 5 mg Arformoterol Tartrate (Brovana) 15 mcg IH [id number] [facility] Last Admin: 10/11/16 07:48 Dose: 15 mcg Aspirin (Ecotrin) 81 mg PO DAILY [facility] Last Admin: 10/10/16 10:12 Dose: 81 mg Atorvastatin Calcium (Lipitor) 40 mg PO DIN [facility] Last Admin: 10/10/16 17:28 Dose: 40 mg Budesonide (Pulmicort Respules) 0.5 mg IH [id number] [facility] Last Admin: 10/11/16 07:49 Dose: 0.5 mg Clonidine HCl (Catapres) 0.1 mg PO BID [facility] Last Admin: 10/10/16 17:27 Dose: 0.1 mg Clopidogrel Bisulfate (Plavix) 75 mg PO DAILY [facility] Last Admin: 10/10/16 10:11 Dose: 75 mg Famotidine (Pepcid) 40 mg PO HS [facility] Last Admin: 10/10/16 21:52 Dose: 40 mg Ketorolac Tromethamine (Toradol) 30 mg IVP Q6 PRN PRN Reason: Pain, moderate (4-7) Last Admin: 10/11/16 08:27 Dose: 30 mg Levothyroxine Sodium (Synthroid) 25 mcg PO 0600 [facility] Last Admin: 10/11/16 05:15 Dose: 25 mcg Lisinopril (Zestril) 40 mg PO DAILY [facility] Last Admin: 10/10/16 10:12 Dose: 40 mg Montelukast Sodium (Singulair) 10 mg PO DAILY [facility] Last Admin: 10/10/16 10:12 Dose: 10 mg Ondansetron HCl (Zofran Inj) 4 mg IVP Q6H PRN PRN Reason: Nausea/Vomiting Last Admin: 10/09/16 12:08 Dose: 4 mg - Labs Labs: 10/11/16 05:10 10/11/16 05:10 PT 10.4 Seconds (9.9-11.8) 10/07/16 11:28 INR 0.96 (0.93-1.08) 10/07/16 11:28 APTT 30.6 Seconds (23.7-30.8) 10/07/16 11:28
[2016-10-11 11:32] VITALS: BP 142/75
--- NOTE | 2016-10-11 12:11 | PN ---
DATE: 10/11/2016 SUBJECTIVE: The patient is feeling well. No chest pain. No shortness of breath. PHYSICAL EXAMINATION: VITAL SIGNS: Blood pressure is 145/90, heart rate in the 70s. NECK: Negative JVD. LUNGS: Without rales. HEART: Regular, S1, S2. EXTREMITIES: Without edema. LABORATORY DATA: Hemoglobin is 10.2. Chemistries: The sodium is stable at 127, potassium is 4.5 IMPRESSION: 1. Stable post percutaneous transluminal coronary angioplasty and stent. 2. History of multivessel coronary artery disease. 3. Chronic obstructive pulmonary disease. 4. Hyponatremia followed by nephrology. 5. Hypercholesterolemia. PLAN: Given these findings, the patient should be able to be discharged today. The patient has a follow-up appointment on Saturday for PTCA and stent of his RCA. I have discussed with her about the need to stop smoking again. From a cardiac perspective, the patient can be discharged. Abdirahman Crockett MD
[2016-10-11 12:12] VITALS: PULSE 75
== END 2016-10-11 15:22 | disposition home or self-care (01) | DRG 247 ==
LOC: ED 10:48 → ERH 12:07 → 2RNO 14:10 → OBSVTOIN 10-08 10:57 → 2RSO 10-09 14:00
PROVIDERS: ADMIT Family Medicine; ATTEND Family Medicine
PROC: 027034Z Dilation of Coronary Artery, One Artery with Drug-eluting Intraluminal Device, Percutaneous Approach (ICD-10-PCS; principal; 2016-10-09)
PROC: 4A023N7 Measurement of Cardiac Sampling and Pressure, Left Heart, Percutaneous Approach (ICD-10-PCS; 2016-10-09)
PROC: B2151ZZ Fluoroscopy of Left Heart using Low Osmolar Contrast (ICD-10-PCS; 2016-10-09)
PROC: B2111ZZ Fluoroscopy of Multiple Coronary Arteries using Low Osmolar Contrast (ICD-10-PCS; 2016-10-09)
DX: I25.110 Atherosclerotic heart disease of native coronary artery with unstable angina pectoris (principal); J44.9 Chronic obstructive pulmonary disease, unspecified; E87.1 Hypo-osmolality and hyponatremia; I10 Essential (primary) hypertension; K21.9 Gastro-esophageal reflux disease without esophagitis; F17.210 Nicotine dependence, cigarettes, uncomplicated; E03.9 Hypothyroidism, unspecified; E78.00 Pure hypercholesterolemia, unspecified; Z88.0 Allergy status to penicillin; Z82.49 Family history of ischemic heart disease and other diseases of the circulatory system

== ENCOUNTER 2016-10-15 06:26 | Day surgery (SDC) | payer MEDICARE ==
[2016-10-12 08:25] VITALS: BMI 24.9
[2016-10-15] MEDS ORDERED: Iohexol 350mgl/ml 50 ML ONE (07:01)
[2016-10-15] MEDS ORDERED: Lidocaine 2% Inj (20ml) ONE (07:01)
[2016-10-15] MEDS ORDERED: Nitroglycerin 50mg in D5W 50 MG/250 ML BOTTLE IV ONE (07:18)
[2016-10-15 07:23] LABS: BASO # 0.03 K/mm3 (0.0-2.0); BASO % 0.4 % (0.0-3.0); EOS # 0.5 (0.0-0.7); EOS % 7.6 % (1.5-5.0); GRAN # 3.31 (1.4-6.5); GRAN % 46.6 % (50.0-68.0); HEMOGLOBIN 11.5 gm/dL (14.0-18.0); LYMPH # 2.4 (1.2-3.4); LYMPH % 34.1 % (22.0-35.0); MEAN CELL VOLUME 98.3 fL (80.0-105.0); MEAN CORPUSCULAR HEMOGLOBIN 33.3 pg (25.0-35.0); MEAN CORPUSCULAR HGB CONC 33.9 g/dl (31.0-37.0); MEAN PLATELET VOLUME 9.4 fl (7.0-11.0); MONO # 0.8 (0.1-0.6); MONO % 11.3 % (1.0-6.0); PLATELET COUNT 415 10^3/uL (120.0-450.0); RBC 3.45 10^6/uL (3.5-6.1); RED CELL DISTRIBUTION WIDTH 13.3 % (11.5-14.5); WHITE BLOOD COUNT 7.1 10^3/ul (4.5-11.0)
[2016-10-15 07:31] LABS: INR 0.99 (0.93-1.08); PARTIAL THROMBOPLASTIN TIME 29.8 Seconds (23.7-30.8); PROTHROMBIN TIME 10.7 Seconds (9.9-11.8)
[2016-10-15 07:50] LABS: BLOOD UREA NITROGEN 14 mg/dL (7-21); CALCIUM 9.4 mg/dL (8.4-10.5); GFR AFRICAN-AMERICAN > 60; GFR NON-AFRICAN AMERICAN 55; HDL CHOLESTEROL 44 mg/dL (29-60); LDL CHOLESTEROL 72 mg/dL (0-129)
[2016-10-15] MEDS: Midazolam 2 MG/2 ML VIAL ONE ×4 (07:57→20:32)
[2016-10-15] MEDS ORDERED: Iodixanol 320 mg/ml 150 ml Bottle IV ONE (08:00)
[2016-10-15] MEDS ORDERED: Sodium Chloride 0.9% 1,000 ML IV SCH (09:15)
[2016-10-15] MEDS ORDERED: Albuterol 0.5% Inhal Sol (2.5 mg/0.5 ml) UD IH PRN (09:39)
[2016-10-15] MEDS: Levothyroxine 25 MCG TAB PO SCH (09:58)
[2016-10-15] MEDS ORDERED: Albuterol 0.083% Inhal Sol (2.5 mg/3 mL) UD IH PRN (09:58)
[2016-10-15] MEDS ORDERED: Fluticasone-Salmeterol 250-50mcg Diskus IH SCH (10:00)
--- NOTE | 2016-10-15 11:54 | CARDCATH ---
PROCEDURE DATE: 10/15/2016 HISTORY: The patient is a 66-year-old male who presents with unstable angina. He has multiple cardiac risk factors including smoking. He has stopped smoking since his last procedure 1 week ago. 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 He presents for PTCA and stent of a 80% mid RCA lesion. PROCEDURE: The left femoral artery was cannulated with a 6-Chinese sheath. There were no complications. Findings on catheterization revealed a patent stent in the ostium of the LAD. The RCA revealed 80% stenoses in the dominant RCA. The patient was started on intravenous Angiomax on the fluoroscopic guide, the guiding catheter was placed in the ostium of the RCA and 0.014 ATW wire was used to cross the lesion. A 2.75 x 8 mm drug-eluting stent was placed and deployed at 12 ounces repeat coronary arteriography up to 200 of IC nitroglycerin revealed an excellent result with no residual stenosis and GERRY III flow. Angio-Seal was used to close the femoral artery site. The patient tolerated the procedure well. In summary, the procedure was successful PTCA and stent of a critically stenosed mid RCA stenoses with a drug-eluting stent. The ostial LAD stent was found to be patent on coronary arteriography. Given these findings, the patient will need to remain on aspirin indefinitely and Plavix for at least 1 year. He understands the importance of him stopping smoking. Abdirahman Crockett MD
[2016-10-15 12:11] VITALS: RESP 20
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
--- NOTE | 2016-10-15 13:18 | CARD ---
APPROVED REPORT EKG Measurement Heart [id number] [id number] <Conclusion> Normal sinus rhythm Increased R/S ratio in V1, consider early transition or posterior infarct Abnormal ECG
--- NOTE | 2016-10-15 20:53 | CP.PCM.PN ---
Subjective - Date & Time of Evaluation Date of Evaluation: 10/15/16 Time of Evaluation: 20:53 - Subjective Subjective: Patient was seen at bedside. He complained for headache for 2 hours. It is frontal headache, mild , not associated with nausea, dizziness, weakness , paraesthesia. Denies lightheadedness, heaviness in head, eye symptoms, ear symptoms, sinus problem, teeth problem, head injury. Medical record was reviewed. This 66 year old white male was admitted for cardiac catheterization and stenting. Has PMH of CAD, HLD, COPD, hypothyroidism, HTN,GERD, herniated disc, coronary stent placement, smoker. Objective - Vital Signs/Intake and Output Vital Signs (last 24 hours): Temp Pulse Resp BP Pulse Ox 98.4 F 62 20 149/68 99 10/15/16 18:00 10/15/16 18:00 10/15/16 18:00 10/15/16 18:00 10/15/16 06:55 - Medications Medications: Current Medications Acetaminophen (Tylenol 325mg Tab) 650 mg PO STAT STA Stop: 10/15/16 20:53 Albuterol Sulfate (Albuterol 0.083% Inhal Trini (2.5 Mg/3 Ml) Ud) 2.5 mg IH BID PRN PRN Reason: Shortness of Breath Arformoterol Tartrate (Brovana) 15 mcg IH [id number] [facility] Aspirin (Ecotrin) 81 mg PO DAILY [facility] Last Admin: 10/15/16 09:58 Dose: Not Given Atorvastatin Calcium (Lipitor) 40 mg PO DIN [facility] Last Admin: 10/15/16 18:09 Dose: Not Given Atorvastatin Calcium (Lipitor) 40 mg PO DAILY [facility] Last Admin: 10/15/16 09:58 Dose: 40 mg Budesonide (Pulmicort Respules) 0.5 mg IH [id number] [facility] Clopidogrel Bisulfate (Plavix) 75 mg PO DAILY [facility] Last Admin: 10/15/16 09:59 Dose: Not Given Levothyroxine Sodium (Synthroid) 25 mcg PO DAILY [facility] Last Admin: 10/15/16 09:58 Dose: 25 mcg Montelukast Sodium (Singulair) 10 mg PO DAILY [facility] Last Admin: 10/15/16 09:58 Dose: 10 mg - Labs Labs: 10/15/16 06:35 10/15/16 06:35 PT 10.7 Seconds (9.9-11.8) 10/15/16 06:35 INR 0.99 (0.93-1.08) 10/15/16 06:35 APTT 29.8 Seconds (23.7-30.8) 10/15/16 06:35 Lab Studies 10/15/16 10/15/16 10/15/16 Range/Units 06:50 06:35 06:35 WBC (4.5-11.0) 10^3/ul RBC (3.5-6.1) 10^6/uL Hgb (14.0-18.0) gm/dL Hct (42.0-52.0) % MCV (80.0-105.0) fL MCH (25.0-35.0) pg MCHC (31.0-37.0) g/dl RDW (11.5-14.5) % Plt Count (120.0-450.0) 10^3/uL MPV (7.0-11.0) fl Gran % (50.0-68.0) % Lymph % (Auto) (22.0-35.0) % [place] % (Auto) (1.0-6.0) % Eos % (Auto) (1.5-5.0) % Baso % (Auto) (0.0-3.0) % Gran # (1.4-6.5) Lymph # (1.2-3.4) [place] # (0.1-0.6) Eos # (0.0-0.7) Baso # (0.0-2.0) K/mm3 PT (9.9-11.8) Seconds INR (0.93-1.08) APTT (23.7-30.8) Seconds Sodium 134 (132-148) mmol/L Potassium 4.5 (3.6-5.0) mmol/L Chloride 100 (95-110) mmol/L Carbon Dioxide 24 (21-33) mmol/L Anion Gap 15 (10-20) BUN 14 (7-21) mg/dL Creatinine 1.3 (0.5-1.4) mg/dL Est GFR ( Amer) > 60 Est GFR (Non-Af Amer) 55 Random Glucose 92 (70-110) mg/dL Calcium 9.4 (8.4-10.5) mg/dL Triglycerides 171 H (35-160) mg/dL Cholesterol 155 (130-200) mg/dL LDL Cholesterol Direct 72 (0-129) mg/dL HDL Cholesterol 44 (29-60) mg/dL Blood Type O POSITIVE Blood Type Confirm O POSITIVE Antibody Screen Negative BBK History Checked No verified bt 10/15/16 10/15/16 Range/Units 06:35 06:35 WBC 7.1 D (4.5-11.0) 10^3/ul RBC 3.45 L (3.5-6.1) 10^6/uL Hgb 11.5 L (14.0-18.0) gm/dL Hct 33.9 L (42.0-52.0) % MCV 98.3 (80.0-105.0) fL MCH 33.3 (25.0-35.0) pg MCHC 33.9 (31.0-37.0) g/dl RDW 13.3 (11.5-14.5) % Plt Count 415 (120.0-450.0) 10^3/uL MPV 9.4 (7.0-11.0) fl Gran % 46.6 L (50.0-68.0) % Lymph % (Auto) 34.1 (22.0-35.0) % [place] % (Auto) 11.3 H (1.0-6.0) % Eos % (Auto) 7.6 H (1.5-5.0) % Baso % (Auto) 0.4 (0.0-3.0) % Gran # 3.31 (1.4-6.5) Lymph # 2.4 (1.2-3.4) [place] # 0.8 H (0.1-0.6) Eos # 0.5 (0.0-0.7) Baso # 0.03 (0.0-2.0) K/mm3 PT 10.7 (9.9-11.8) Seconds INR 0.99 (0.93-1.08) APTT 29.8 (23.7-30.8) Seconds Sodium (132-148) mmol/L Potassium (3.6-5.0) mmol/L Chloride (95-110) mmol/L Carbon Dioxide (21-33) mmol/L Anion Gap (10-20) BUN (7-21) mg/dL Creatinine (0.5-1.4) mg/dL Est GFR ( Amer) Est GFR (Non-Af Amer) Random Glucose (70-110) mg/dL Calcium (8.4-10.5) mg/dL Triglycerides (35-160) mg/dL Cholesterol (130-200) mg/dL LDL Cholesterol Direct (0-129) mg/dL HDL Cholesterol (29-60) mg/dL Blood Type Blood Type Confirm Antibody Screen BBK History Checked - Constitutional Appears: Well, No Acute Distress - Head Exam Head Exam: ATRAUMATIC, NORMAL INSPECTION, NORMOCEPHALIC - Eye Exam Eye Exam: Normal appearance - ENT Exam ENT Exam: Normal External Ear Exam - Neck Exam Neck Exam: Normal Inspection - Respiratory Exam Respiratory Exam: NORMAL BREATHING PATTERN - Cardiovascular Exam Cardiovascular Exam: absent: JVD - GI/Abdominal Exam GI & Abdominal Exam: absent: Distended Additional comments: Left groin dressing of cath site is non tender , no hematoma, good distal pulse. - Rectal Exam Rectal Exam: Deferred - Exam Additional comments: Deferred. - Extremities Exam Extremities Exam: Normal Inspection - Back Exam Back Exam: NORMAL INSPECTION - Neurological Exam Neurological Exam: Alert, Oriented x3 - Psychiatric Exam Psychiatric exam: Normal Affect, Normal Mood - Skin Skin Exam: Normal Color Assessment and Plan - Assessment and Plan (Free Text) Assessment: Frontal headache. S/P cardica catheterization. HTN. GERD. Herniated disc. smoker. CAD. HLD. COPD. Hypothyroidism. Plan: Tylenol 650 mg PO stat. Continue prensent management.
[2016-10-15] MEDS: Arformoterol 15 mcg/2 ml Inh Sol IH SCH (21:41)
[2016-10-15] MEDS: Budesonide 0.5 mg/2 ml Inhal Susp UD IH SCH (21:42)
[2016-10-16 05:56] VITALS: BP 147/80; TEMP 99.3; O2SAT 96
[2016-10-16 08:27] LABS: BASO # 0.03 K/mm3 (0.0-2.0); BASO % 0.4 % (0.0-3.0); EOS # 0.4 (0.0-0.7); EOS % 4.5 % (1.5-5.0); GRAN # 4.97 (1.4-6.5); GRAN % 62.3 % (50.0-68.0); HEMOGLOBIN 11.4 g/dL (14.0-18.0); LYMPH # 1.9 (1.2-3.4); LYMPH % 23.8 % (22.0-35.0); MEAN CELL VOLUME 99.4 fl (80.0-105.0); MEAN CORPUSCULAR HEMOGLOBIN 32.9 pg (25.0-35.0); MEAN PLATELET VOLUME 9.4 fl (7.0-11.0); MONO # 0.7 (0.1-0.6); PLATELET COUNT 382 10^3/uL (120.0-450.0); RBC 3.47 10^6/uL (3.5-6.1); RED CELL DISTRIBUTION WIDTH 13.2 % (11.5-14.5)
[2016-10-16 08:42] LABS: ALB/GLOB RATIO 1.5 (1.1-1.8); ALT/SGPT 28 U/L (7-56); AST/SGOT 45 U/L (15-59); BLOOD UREA NITROGEN 10 mg/dL (7-21); CALCIUM 9.3 mg/dL (8.4-10.5); GFR AFRICAN-AMERICAN > 60; GFR NON-AFRICAN AMERICAN > 60
[2016-10-16] MEDS: Arformoterol 15 mcg/2 ml Inh Sol IH SCH (09:03)
[2016-10-16] MEDS: Budesonide 0.5 mg/2 ml Inhal Susp UD IH SCH (09:03)
[2016-10-16] MEDS: Levothyroxine 25 MCG TAB PO SCH (09:36)
[2016-10-16 11:01] VITALS: PULSE 110
--- NOTE | 2016-10-16 13:55 | PN ---
DATE: 10/16/2016 SUBJECTIVE: The patient is asymptomatic. No shortness of breath. No chest pain. PHYSICAL EXAMINATION: VITAL SIGNS: Blood pressure 147/80, heart rate is in the 70s. NECK: Negative JVD. LUNGS: Without rales. HEART: S1, S2. EXTREMITIES: Without edema. The right groin site is stable and the left groin site is stable. LABORATORY DATA: Hemoglobin is 11.4, potassium is 4.8 with a normal creatinine. IMPRESSION: 1. Status post multivessel PTCA. 2. Coronary artery disease. 3. Chronic obstructive pulmonary disease. 4. Hypercholesterolemia. Given these findings, the patient can be discharged today from a cardiac perspective. I have discussed his need for long-term aspirin as well as Plavix for least a year. Followup and instructions have been given to the patient in detail. Abdirahman Crockett MD
--- NOTE | 2016-10-16 17:00 | CARD ---
APPROVED REPORT EKG Measurement Heart [id number] <Conclusion> Normal sinus rhythm with sinus arrhythmia Increased R/S ratio in V1, consider early transition or posterior infarct Abnormal ECG
--- NOTE | 2016-10-16 21:19 | DS ---
HISTORY OF PRESENT ILLNESS: He is very well status post catheterization by Dr. Crockett. He is in good spirit. No swelling, no chest pain, no shortness of breath, no abdominal pain. He has got a good appetite. MEDICATIONS: He is on albuterol, Brovana, Ecotrin, Lipitor, Plavix, Pulmicort, Singulair, Synthroid. PHYSICAL EXAMINATION: GENERAL: He is in good spirits. VITAL SIGNS: He has 99.3 temperature, 76 pulse, 147/80 blood pressure, 20 respiratory rate, and 96% O2 saturations. HEENT: Head is atraumatic, normocephalic. HEART: Regular rate. LUNGS: Clear to auscultation. ABDOMEN: Soft. EXTREMITIES: No edema. LABORATORY DATA: Lab is pending this morning. ASSESSMENT AND PLAN: He is not allowed to smoke anymore. He can be discharged to home after Dr. Crockett sees him. Prescriptions were given. Outpatient visits were given. Hopefully, he will do very well. This is a discharge summary on Lg Forbes with coronary artery disease with cardiac cath and stent placement. Ten Senior DO
== END 2016-10-16 11:03 | disposition home or self-care (01) ==
LOC: CATH 06:26 → 2RSO 08:59 → CATH 10-16 11:03
PROVIDERS: ATTEND Family Medicine
DX: I25.110 Atherosclerotic heart disease of native coronary artery with unstable angina pectoris (principal); E03.9 Hypothyroidism, unspecified; E78.00 Pure hypercholesterolemia, unspecified; E78.5 Hyperlipidemia, unspecified; F17.210 Nicotine dependence, cigarettes, uncomplicated; I10 Essential (primary) hypertension; J44.9 Chronic obstructive pulmonary disease, unspecified; K21.9 Gastro-esophageal reflux disease without esophagitis; Z79.82 Long term (current) use of aspirin; Z88.0 Allergy status to penicillin; Z95.5 Presence of coronary angioplasty implant and graft; R51 Headache; M51.26 Other intervertebral disc displacement, lumbar region
CPT/HCPCS: 36415 ×2; 80048; 80053; 80061; 85025 ×2; 85027; 85610; 85730; 86850; 86900; 93005 ×2; 99152; 99153; C1760; C1769 ×2; C1874; C1887; C2629; C9600; J0583; J1644; J2250; J3010; J7030; J7040; Q9967

== ENCOUNTER 2016-11-04 20:22 | Observation (INO) | payer MEDICARE, OTHER ==
--- NOTE | 2016-11-04 21:05 | ED PDOC ---
Arrival/HPI - General Chief Complaint: Trauma Time Seen by Provider: 11/04/16 20:33 Historian: Patient - History of Present Illness Narrative History of Present Illness (Text): 11/04/16 21:05 Lg Forbes is a 66 year old male former smoker, whose past medical history includes hypertension, CAD, hyperlipidemia, and asthma, who presents to the Emergency department complaining of left-sided chest pain. Patient states he began experiencing burning left-sided chest pain today.States he fell and hit his chest against a table last week but no significant discomfort at that time.He is worried that this new discomfort may be heart related. Patient was concerned because he was recently admitted to the hospital and had coronary stents placed 3 weeks prior after presenting with similar symptoms. Patient denies any fever, chills, shortness of breath, nausea, vomiting, diarrhea, urinary symptoms, back pain, neck pain, headache, dizziness, or any other complaints. Symptom Onset: Gradual Symptom Course: Unchanged Activities at Onset: Light Context: Home Past Medical History - Provider Review Nursing Documentation Reviewed: Yes - Infectious Disease Hx of Infectious Diseases: None - Tetanus Immunization Tetanus Immunization: Unknown - Cardiac Hx Pacemaker: No - Pulmonary Hx Respiratory Disorders: Yes Hx Bronchitis: Yes - Neurological Hx Paralysis: No - HEENT Hx HEENT Disorder: No - Renal Hx Renal Disorder: No - Endocrine/Metabolic Hx Endocrine Disorders: No - Hematological/Oncological Hx Blood Transfusions: No - Integumentary Hx Dermatological Disorder: No - Musculoskeletal/Rheumatological Hx Musculoskeletal Disorders: No - Gastrointestinal Hx Gastrointestinal Disorders: No - Genitourinary/Gynecological Hx Genitourinary Disorders: No - Psychiatric Hx Emotional Abuse: No Hx Physical Abuse: No Hx Substance Use: No - Anesthesia Hx Anesthesia Reactions: No Hx Malignant Hyperthermia: No - Suicidal Assessment Feels Threatened In Home Enviroment: No Family/Social History - Physician Review Nursing Documentation Reviewed: Yes Family/Social History: Unknown Family HX Smoking Status: Light Smoker < 10 Cigarettes Daily Hx Alcohol Use: No Hx Substance Use: No Hx Substance Use Treatment: No Allergies/Home Meds Allergies/Adverse Reactions: Allergies Penicillins Allergy (Verified 10/07/16 10:57) RASH Home Medications: Home Meds Medication Instructions Recorded Confirmed Lisinopril 10 mg PO DAILY 11/10/15 11/04/16 Aspirin/Acetaminophen/Caffeine 1 tab PO DAILY 10/12/16 11/04/16 [Excedrin Extra Strength Caplet] Oxycodone HCl/Acetaminophen 1 tab PO BID PRN 11/05/16 11/05/16 [Percocet 10-325 mg Tablet] Review of Systems - Physician Review All systems were reviewed & negative as marked: Yes - Review of Systems Constitutional: Normal. absent: Fevers Eyes: Normal ENT: Normal Respiratory: Normal. absent: SOB, Cough Cardiovascular: Chest Pain Gastrointestinal: Normal. absent: Abdominal Pain, Diarrhea, Nausea, Vomiting Genitourinary Male: Normal. absent: Dysuria, Frequency, Hematuria, Urinary Output Changes Musculoskeletal: absent: Neck Pain Skin: Normal. absent: Rash Neurological: Normal. absent: Headache, Dizziness Endocrine: Normal Hemo/Lymphatic: Normal Psychiatric: Normal Physical Exam Vital Signs Reviewed: Yes Vital Signs Temp Pulse Pulse Resp BP Pulse Ox 11/05/16 00:16 98.5 F 79 80 20 157/72 H 11/05/16 00:08 74 18 136/71 98 11/04/16 23:00 77 18 136/62 97 11/04/16 21:00 98.1 F 82 16 120/62 97 Temperature: Afebrile Blood Pressure: Normal Pulse: Regular Respiratory Rate: Normal Appearance: Positive for: Well-Appearing, Non-Toxic, Comfortable Pain Distress: None Mental Status: Positive for: Alert and Oriented X 3 - Systems Exam Head: Present: Atraumatic, Normocephalic Pupils: Present: PERRL Extroacular Muscles: Present: EOMI Conjunctiva: Present: Normal Mouth: Present: Moist Mucous Membranes Neck: Present: Normal Range of Motion Respiratory/Chest: Present: Clear to Auscultation, Good Air Exchange. No: Respiratory Distress, Accessory Muscle Use, Tender to Palpation Cardiovascular: Present: Regular Rate and Rhythm, Normal S1, S2. No: Murmurs Abdomen: Present: Normal Bowel Sounds. No: Tenderness, Distention, Peritoneal Signs Back: Present: Normal Inspection Upper Extremity: Present: Normal Inspection. No: Cyanosis, Edema Lower Extremity: Present: Normal Inspection. No: Edema Neurological: Present: GCS=15, CN II-XII Intact, Speech Normal Skin: Present: Warm, Dry, Normal Color. No: Rashes Psychiatric: Present: Alert, Oriented x 3, Normal Insight, Normal Concentration Medical Decision Making ED Course and Treatment: 11/04/16 21:05 Impression: 66 year old male complaining of left-sided chest pain today. Differential Diagnosis included but are not limited to: Plan: -- EKG -- Chest X-ray -- Labs, cardiac enzymes, BNP -- Reassess and disposition Prior Visits: Notes and results from previous visits were reviewed. On 10/07/2016, pt was seen in the Emergency department for left-sided chest discomfort. Pt was admitted to the hospital for further evaluation. Progress Notes: Reviewed EKG, NSR at [address] bpm[address] Non-specific ST/T wave changes. Unchanged on 2016. 11/04/16 22:11 Reviewed radiology, Chest X-ray shows no acute processes. 11/04/16 23:[address] Sánchez, covering for Dr. Senior, who is aware and agrees with plan. Pt will go to Telemetry observation for chest pain under Dr. Senior's service. Requests Dr. Crockett on consult. Discussed results and hospital observation plan with pt, who is aware and verbalizes understanding. - Lab Interpretations Lab Results: 11/04/16 20:55 11/04/16 20:55 Lab Results 11/04/16 20:55: WBC 7.9, RBC 2.98 L, Hgb 10.0 L, Hct 29.4 L, MCV 98.7, MCH 33.6 , MCHC 34.0, RDW 13.0, Plt Count 244, MPV 10.0 11/04/16 20:55: Sodium 138, Potassium 5.1 H, Chloride 108 H, Carbon Dioxide 18 L , Anion Gap 17, BUN 22 H, Creatinine 1.4, Est GFR ( Amer) > 60, Est GFR ( Non-Af Amer) 51, Random Glucose 75, Calcium 9.5, Total Bilirubin 0.2, AST 25, ALT 24, Alkaline Phosphatase 96, Lactate Dehydrogenase 362, Total Creatine Kinase 60, Troponin I 0.02 D, NT-Pro-B Natriuret Pep 593 H, Total Protein 6.4, Albumin 3.8, Globulin 2.5, Albumin/Globulin Ratio 1.5 11/04/16 20:55: PT 11.2, INR 1.04, APTT 30.6 - RAD Interpretation Radiology Orders: 11/04/16 21:10 CHEST PORTABLE [RAD] Stat - EKG Interpretation Interpreted by ED Physician: Yes Type: 12 lead EKG - Medication Orders Current Medication Orders: Discontinued Medications Aspirin (Aspirin) 325 mg PO ONCE STA Stop: 11/04/16 22:23 Last Admin: 11/04/16 22:33 Dose: 325 mg Morphine Sulfate (Morphine) 2 mg IVP STAT STA Stop: 11/04/16 22:23 Last Admin: 11/04/16 22:35 Dose: 2 mg Re-Assess: JUNITO Pain Assessment Document 11/04/16 23:35 AP (Rec: 11/05/16 00:57 AP [id number]) Pain Reassessment Is this a pain reassessment? Yes Presence of Pain Presence of Pain No - Scribe Statement The provider has reviewed the documentation as recorded by the Scribshorty Mullen Provider Scribe Attestation: All medical record entries made by the Scribe were at my direction and personally dictated by me. I have reviewed the chart and agree that the record accurately reflects my personal performance of the history, physical exam, medical decision making, and the department course for this patient. I have also personally directed, reviewed, and agree with the discharge instructions and disposition. Disposition/Present on Arrival - Present on Arrival Any Indicators Present on Arrival: No History of DVT/PE: No History of Uncontrolled Diabetes: No Urinary Catheter: No History of Decub. Ulcer: No History Surgical Site Infection Following: None - Disposition Have Diagnosis and Disposition been Completed?: Yes Diagnosis: Chest pain Disposition: HOSPITALIZED Disposition Time: 23:14 Patient Problems: Current Active Problems Problem Status Onset Chest pain Acute Condition: STABLE
[2016-11-04 21:30] LABS: HEMATOCRIT 29.4 % (42.0-52.0); MEAN CELL VOLUME 98.7 fl (80.0-105.0); MEAN CORPUSCULAR HEMOGLOBIN 33.6 pg (25.0-35.0); WHITE BLOOD COUNT 7.9 10^3/ul (4.5-11.0)
[2016-11-04 21:39] LABS: ALB/GLOB RATIO 1.5 (1.1-1.8); ALKALINE PHOSPHATASE 96 U/L (38-133); ALT/SGPT 24 U/L (7-56); AST/SGOT 25 U/L (15-59); BILIRUBIN,TOTAL 0.2 mg/dL (0.2-1.3); BLOOD UREA NITROGEN 22 mg/dL (7-21); CALCIUM 9.5 mg/dL (8.4-10.5); CARBON DIOXIDE 18 mmol/L (21-33); CHLORIDE 108 mmol/L (98-107); GFR AFRICAN-AMERICAN > 60; GLUCOSE,RANDOM 75 mg/dL (70-110); SODIUM 138 mmol/L (132-148); TOTAL PROTEIN 6.4 g/dL (5.8-8.3)
[2016-11-04 21:41] LABS: POTASSIUM 5.1 mmol/L (3.6-5.0)
[2016-11-04 21:47] LABS: INR 1.04 (0.93-1.08); PARTIAL THROMBOPLASTIN TIME 30.6 Seconds (23.7-30.8)
[2016-11-04 21:51] LABS: TROPONIN I 0.02 ng/mL
[2016-11-04] MEDS ORDERED: Morphine 2 mg/ml ISec IVP STA (22:22)
[2016-11-05 00:09] VITALS: O2SAT 98
[2016-11-05 00:55] VITALS: RESP 20; BMI 25.2
--- NOTE | 2016-11-05 07:27 | RAD ---
HISTORY: pain COMPARISON: 10/07/2016. FINDINGS: LUNGS: The lungs are well inflated and clear. PLEURA: No significant pleural effusion identified, no pneumothorax apparent. CARDIOVASCULAR: Normal. 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 VISUALIZED UPPER ABDOMEN: Normal. OTHER FINDINGS: None. IMPRESSION: No active pulmonary disease.
[2016-11-05] MEDS ORDERED: Albuterol 0.083% Inhal Sol (2.5 mg/3 mL) UD IH PRN (08:00)
[2016-11-05 08:09] LABS: ALB/GLOB RATIO 1.4 (1.1-1.8); ALKALINE PHOSPHATASE 80 U/L (38-133); ALT/SGPT 22 U/L (7-56); AST/SGOT 34 U/L (15-59); BILIRUBIN,TOTAL 0.3 mg/dL (0.2-1.3); BLOOD UREA NITROGEN 18 mg/dL (7-21); CALCIUM 9.6 mg/dL (8.4-10.5); CARBON DIOXIDE 19 mmol/L (21-33); CHLORIDE 112 mmol/L (98-107); GFR AFRICAN-AMERICAN > 60; GLUCOSE,RANDOM 80 mg/dL (70-110); POTASSIUM 4.9 mmol/L (3.6-5.0); SODIUM 140 mmol/L (132-148); TOTAL PROTEIN 6.3 g/dL (5.8-8.3)
[2016-11-05 08:21] LABS: TROPONIN I 0.02 ng/mL
[2016-11-05] MEDS ORDERED: Levothyroxine 25 MCG TAB PO SCH (10:00)
--- NOTE | 2016-11-05 10:47 | CON ---
DATE: 11/05/2016 HISTORY OF PRESENT ILLNESS: The patient is a 66-year-old male who presents with chest and body aches after a fall where he tripped on a rug and hit his chest on a table. PAST MEDICAL HISTORY: The patient's past medical history is notable for severe COPD, hypercholesterolemia, hypertension and is status post PTCA and stent earlier this month. The patient has been able to stop smoking. His chest pain increases with movement of his upper thorax on inspiration and is reproducible on palpation. SOCIAL HISTORY: He has a long history of smoking and has stopped since his angioplasty. REVIEW OF SYSTEMS: A 14-point review of systems was reviewed in detail. No cardiac symptomatology is noted. PHYSICAL EXAMINATION: VITAL SIGNS: Blood pressure is 155/69, heart rate in the 70s. NECK: Negative JVD. LUNGS: Without rales. HEART: Reveals S1, S2. CHEST: Chest palpation is reproducible on pressure over his sternal area. EXTREMITIES: Without edema. LABORATORY DATA: Hemoglobin is 10. Troponins are negative x2. Potassium is 4.9. EKG is unremarkable. IMPRESSION: 1. Chest pain secondary to local trauma to the chest. 2. No evidence for acute coronary syndrome. 3. Chronic obstructive pulmonary disease. 4. Hypercholesterolemia. 5. Status post percutaneous transluminal coronary angioplasty and stent with drug-eluting stents. 6. Hypercholesterolemia. 7. Hypertension. PLAN: Given these findings, there is no evidence for acute coronary syndrome. I have discussed his need to continue to refrain from cigarettes. The patient can be discharged today from a cardiac perspective. Follow up instructions have been given to the patient. Abdirahman Crockett MD
[2016-11-05 12:26] VITALS: BP 133/66; TEMP 97
[2016-11-05 14:28] VITALS: PULSE 59
--- NOTE | 2016-11-05 15:38 | US ---
HISTORY: Leg pain and swelling. Evaluate for DVT PHYSICIAN(S): Abdirahman Bentley MD. TECHNIQUE: Duplex sonography and color-flow Doppler with graded compression were used to evaluate the deep venous systems of both lower extremities. FINDINGS: The visualized deep venous systems of both lower extremities are sonographically normal and compressible. Normal wave forms and augmentation are seen. There is no sonographic evidence for deep venous thrombosis in the visualized segments of both lower extremities. IMPRESSION: No sonographic evidence for deep venous thrombosis in the visualized segments of both lower extremities.
--- NOTE | 2016-11-05 21:45 | CARD ---
APPROVED REPORT EKG Measurement Heart [id number] [place] [id number] <Conclusion> Normal sinus rhythm Increased R/S ratio in V1, consider early transition or posterior infarct Abnormal ECG
--- NOTE | 2016-11-06 07:25 | HP ---
HISTORY OF PRESENT ILLNESS: I saw the patient, resting in bed. He is a little bit nervous. He has some chest pain and he is here now on observation, left-sided chest pain. He did hit his chest against the table and since then he has been having this pain. PAST MEDICAL HISTORY: He has a past medical history, which is hypertension, coronary artery disease, high cholesterol, asthma. He was also recently in the hospital for coronary artery stents [address] Crockett. He is a bit concerned and the chest pain is still present on and off. He has had cardiac stents. He is also hypothyroid. FAMILY HISTORY: There is hypertension in the family. SOCIAL HISTORY: He is smoking up until about 3 weeks ago, but I still think he is smoking. No alcohol. No substance abuse. ALLERGIES: HE HAS ALLERGIES TO PENICILLIN. MEDICATIONS: He is on lisinopril, Excedrin, Percocet. He is on Zestril, Synthroid, Singulair for his asthma. Plavix, Lipitor, Catapres, and albuterol. REVIEW OF SYSTEMS: No acute vision changes or hearing changes. No sore throat. No neck pain. He did have left-sided chest pain, more of a pain in the ribs than the heart. No pressure or tightness. No abdominal pain, nausea, vomiting, constipation, or diarrhea. No problems urinating. No neck pain or arm pain. No leg pains or rashes. Skin is intact. No ulcers. No headache. No dizziness. No sweating. No anxiety. No depression, may be little worried. PHYSICAL EXAMINATION: VITAL SIGNS: He has a 98.5 temp, 79 pulse, 20 respiratory rate, 157/72, blood pressure, and 98% O2 sat on room air. GENERAL: He is well appearing, nontoxic, comfortable, just little bit concerned about a left-sided pain. He is oriented to x3. HEENT: Head is atraumatic and normocephalic. Extraocular muscles are intact. Pupils are equal and reactive to light. Throat is moist. NECK: Supple. HEART: Regular rate. Normal S1 and S2. LUNGS: Decreased breath sounds, but clear to auscultation bilaterally. No wheezes, no rhonchi, no rales. ABDOMEN: Soft, nontender, and positive bowel sounds. No guarding. No rebound. No CVA tenderness; there is a little bit of reproducible chest pain in the ribs where he banged it. EXTREMITIES: No edema. NEUROLOGIC: Cranial nerves II through XII grossly intact, normal speech, GCS is 15. SKIN: Warm and dry. No apparent rashes or ulcers. He is alert and oriented x3. NODES: Thyroid midline. No palpable or appreciable lymphadenopathy. LABORATORY DATA: He has got a 140 sodium; potassium 4.9, BUN is 18, creatinine 1.3, GFR is 55, sugar is 80, calcium 9.6, total bili is 0.3, AST is 34, ALT is 22, alk phos is 80. The first troponin was 0.02; the second one is pending. BNP is 593. Total protein is 6.3, albumin is 3.7. White count is 7.9, hemoglobin 10, hematocrit 29.4, platelets of 244, INR is 1.04. Chest x-ray was clear. MEDICATIONS: He is currently on albuterol, aspirin, clonidine, Lipitor, morphine p.r.n. but she has not taken Plavix, Singulair, Synthroid and Zestril. PLAN: Consult for Dr. Crockett. I am awaiting for the second troponin come back this morning. I am hoping that if it is normal, we will discharge him and may be do outpatient evaluation with Dr. Crockett, unless Dr. Crockett wants to take him for a catheterization, not sure; continue with progressive treatment and care as per the patient. He is on observation here for chest pain. Hopefully, we can discharge him later. Ten Senior DO
--- NOTE | 2016-11-18 21:21 | DS ---
NOTE: He came to the hospital after a trip and fall, hit his chest, he had chest pain. He came in and had multiple labs, EKGs and tests. He was seen by the rock picker. He felt better, it was not cardiac. He said he could be discharged. His prescription was given and diet was given. Outpatient treatment and followup was given. He also did very well. The lower extremity ultrasound was negative. Troponins were 0.02 x2. He should follow up with his primary care doctor and he was discharged with chest pain, noncardiac. Ten Senior DO
== END 2016-11-05 19:40 | disposition home or self-care (01) ==
LOC: ED 20:22 → ERH 23:11 → 2RSO 11-05 00:20
PROVIDERS: ADMIT Family Medicine; ATTEND Family Medicine
DX: S29.9XXA Unspecified injury of thorax, initial encounter (principal); R07.9 Chest pain, unspecified; W18.31XA Fall on same level due to stepping on an object, initial encounter; Y92.9 Unspecified place or not applicable; J44.9 Chronic obstructive pulmonary disease, unspecified; E78.00 Pure hypercholesterolemia, unspecified; I10 Essential (primary) hypertension; I25.10 Atherosclerotic heart disease of native coronary artery without angina pectoris; E03.9 Hypothyroidism, unspecified; Z95.5 Presence of coronary angioplasty implant and graft; Z79.82 Long term (current) use of aspirin; Z88.0 Allergy status to penicillin
CPT/HCPCS: 36415; 71010; 80053; 82550; 83615; 83880; 84484; 85027; 85610; 85730; 93005; 93970; 96374; 99285; G0378; J1885; J2270